=== PATIENT | female | born 1975 | race Caucasian/White ===

== ENCOUNTER 2017-10-10 09:12 | Observation (INO) | payer OTHER ==
[2017-10-10] MEDS ORDERED: SODIUM CHLORIDE 0.9% 1,000 ML IV ONE ×3 (09:30→11:29)
[2017-10-10] MEDS ORDERED: ACETAMINOPHEN TAB 500 MG TAB PO STA (09:30)
--- NOTE | 2017-10-10 09:33 | ED ---
General Adult HPI - General Chief complaint: Fever Stated complaint: Fever, Vomiting Time Seen by Provider: 10/10/17 09:25 Source: patient, RN notes reviewed, old records reviewed Mode of arrival: ambulatory Limitations: no limitations - History of Present Illness Initial comments: 42-year-old female presenting with fever and vomiting. Patient's fever began yesterday, restaurant 102 at home. This morning she developed nausea and vomiting, she's had total of 3 episodes of nonbloody nonbilious vomiting over the past 1-2 hours. She also complains of some rhinorrhea and nasal congestion. No sore throat. No chest pain or cough. No difficulty breathing. No abdominal pain, no diarrhea. No dysuria or hematuria. No flank pain. Patient has no significant past medical history, not currently on any medication. - Related Data Home Medications Medication Instructions Recorded Confirmed No Known Home Medications [No 10/10/17 10/10/17 Known Home Medications] Allergies Allergy/AdvReac Type Severity Reaction Status Date / Time No Known Allergies Allergy Verified 10/10/17 09:30 Review of Systems ROS Statement: Those systems with pertinent positive or pertinent negative responses have been documented in the HPI. ROS Other: All systems not noted in ROS Statement are negative. Past Medical History Past Medical History: Thyroid Disorder History of Any Multi-Drug Resistant Organisms: None Reported Past Surgical History: Section Additional Past Surgical History / Comment(s): kidney stone removal; uterine ablation Past Psychological History: Anxiety, Depression Smoking Status: Current every day smoker Past Alcohol Use History: Rare Past Drug Use History: None Reported General Exam Limitations: no limitations General appearance: alert, in distress Head exam: Present: atraumatic, normocephalic Eye exam: Present: normal appearance. Absent: PERRL, EOMI ENT exam: Present: mucous membranes dry Neck exam: Present: normal inspection, full ROM. Absent: tenderness, meningismus Respiratory exam: Present: normal lung sounds bilaterally. Absent: respiratory distress, wheezes, rales Cardiovascular Exam: Present: normal rhythm, tachycardia GI/Abdominal exam: Present: soft. Absent: distended, tenderness, guarding, rebound, rigid Extremities exam: Present: normal inspection, normal capillary refill. Absent: pedal edema, joint swelling, calf tenderness Neurological exam: Present: alert, oriented X3, CN II-XII intact. Absent: motor sensory deficit Psychiatric exam: Present: normal affect, normal mood Skin exam: Present: warm, dry, intact. Absent: cyanosis, diaphoretic Course Vital Signs 10/10/17 10/10/17 10/10/17 09:22 10:36 11:22 Temperature 103.6 F H 99.8 F H Pulse Rate 145 H 116 H 101 H Respiratory 20 18 18 Rate Blood Pressure 130/60 101/68 96/54 O2 Sat by Pulse 97 95 95 Oximetry 10/10/17 11:25 Temperature 101.1 F H Pulse Rate Respiratory Rate Blood Pressure O2 Sat by Pulse Oximetry Medical Decision Making - Medical Decision Making 42-year-old female presenting with fever and nausea vomiting. Patient has minimal associated symptoms. Laboratory studies are obtained, she does have a white count 9.5 which is normal although this is predominantly neutrophils. Hemoglobin stable. CMP is within normal limits. Lactic acid is normal at 1.5. Patient's initial vital signs are quite abnormal with a heart rate in the 140s and a fever of 103.5. She received 2 L of IV hydration and Tylenol awaiting her laboratory studies. Vitals do improve somewhat. Urinalysis is positive for nitrate, large leukocyte Estrace, and 89 white blood cell counts. Although patient is not having urinary symptoms, I do believe her source of infection is pyelonephritis. On reevaluation She is having persistent nausea and vomiting she will be admitted for IV antibiotics and fluid hydration. - Lab Data Result diagrams: 10/10/17 09:43 10/10/17 09:43 Lab Results 10/10/17 10/10/17 10/10/17 Range/Units 09:43 09:43 09:43 WBC 9.5 (3.8-10.6) k/uL RBC 4.90 (3.80-5.40) m/uL Hgb 14.1 (11.4-16.0) gm/dL Hct 42.5 (34.0-46.0) % MCV 86.7 (80.0-100.0) fL MCH 28.8 (25.0-35.0) pg MCHC 33.2 (31.0-37.0) g/dL RDW 13.3 (11.5-15.5) % Plt Count 223 (150-450) k/uL Neutrophils % 84 % Lymphocytes % 11 % Monocytes % 3 % Eosinophils % 1 % Basophils % 0 % Neutrophils # 7.9 H (1.3-7.7) k/uL Lymphocytes # 1.1 (1.0-4.8) k/uL Monocytes # 0.3 (0-1.0) k/uL Eosinophils # 0.1 (0-0.7) k/uL Basophils # 0.0 (0-0.2) k/uL Sodium 139 (137-145) mmol/L Potassium 4.7 (3.5-5.1) mmol/L Chloride 108 H (98-107) mmol/L Carbon Dioxide 18 L (22-30) mmol/L Anion Gap 13 mmol/L BUN 12 (7-17) mg/dL Creatinine 0.63 (0.52-1.04) mg/dL Est GFR (CKD-EPI)AfAm >90 (>60 ml/min/1.73 sqM) Est GFR (CKD-EPI)NonAf >90 (>60 ml/min/1.73 sqM) Glucose 117 H (74-99) mg/dL Plasma Lactic Acid Freddie (0.7-2.0) mmol/L Calcium 9.3 (8.4-10.2) mg/dL Total Bilirubin 1.0 (0.2-1.3) mg/dL AST 23 (14-36) U/L ALT 28 (9-52) U/L Alkaline Phosphatase 47 (38-126) U/L Total Protein 6.8 (6.3-8.2) g/dL Albumin 3.9 (3.5-5.0) g/dL Urine Color Urine Appearance (Clear) Urine pH (5.0-8.0) Ur Specific [place] (1.001-1.035) Urine Protein (Negative) Urine Glucose (UA) (Negative) Urine Ketones (Negative) Urine Blood (Negative) Urine Nitrite (Negative) Urine Bilirubin (Negative) Urine Urobilinogen (<2.0) mg/dL Ur Leukocyte Esterase (Negative) Urine RBC (0-5) /hpf Urine WBC (0-5) /hpf Ur Squamous Epith Cells (0-4) /hpf Urine Bacteria (None) /hpf Urine Mucus (None) /hpf Urine HCG, Qual Not Detected (Not Detectd) Influenza Type A RNA (Not Detectd) Influenza Type B (PCR) (Not Detectd) 10/10/17 10/10/1710/10/18 Range/Units 09:43 09:43 09:43 WBC (3.8-10.6) k/uL RBC (3.80-5.40) m/uL Hgb (11.4-16.0) gm/dL Hct (34.0-46.0) % MCV (80.0-100.0) fL MCH (25.0-35.0) pg MCHC (31.0-37.0) g/dL RDW (11.5-15.5) % Plt Count (150-450) k/uL Neutrophils % % Lymphocytes % % Monocytes % % Eosinophils % % Basophils % % Neutrophils # (1.3-7.7) k/uL Lymphocytes # (1.0-4.8) k/uL Monocytes # (0-1.0) k/uL Eosinophils # (0-0.7) k/uL Basophils # (0-0.2) k/uL Sodium (137-145) mmol/L Potassium (3.5-5.1) mmol/L Chloride (98-107) mmol/L Carbon Dioxide (22-30) mmol/L Anion Gap mmol/L BUN (7-17) mg/dL Creatinine (0.52-1.04) mg/dL Est GFR (CKD-EPI)AfAm (>60 ml/min/1.73 sqM) Est GFR (CKD-EPI)NonAf (>60 ml/min/1.73 sqM) Glucose (74-99) mg/dL Plasma Lactic Acid Freddie 1.5 (0.7-2.0) mmol/L Calcium (8.4-10.2) mg/dL Total Bilirubin (0.2-1.3) mg/dL AST (14-36) U/L ALT (9-52) U/L Alkaline Phosphatase (38-126) U/L Total Protein (6.3-8.2) g/dL Albumin (3.5-5.0) g/dL Urine Color Yellow Urine Appearance Cloudy H (Clear) Urine pH 5.5 (5.0-8.0) Ur Specific [place] 1.012 (1.001-1.035) Urine Protein 1+ H (Negative) Urine Glucose (UA) Negative (Negative) Urine Ketones Negative (Negative) Urine Blood Moderate H (Negative) Urine Nitrite Positive H (Negative) Urine Bilirubin Negative (Negative) Urine Urobilinogen <2.0 (<2.0) mg/dL Ur Leukocyte Esterase Large H (Negative) Urine RBC 12 H (0-5) /hpf Urine WBC 89 H (0-5) /hpf Ur Squamous Epith Cells 3 (0-4) /hpf Urine Bacteria Rare H (None) /hpf Urine Mucus Rare H (None) /hpf Urine HCG, Qual (Not Detectd) Influenza Type A RNA Not Detected (Not Detectd) Influenza Type B (PCR) Not Detected (Not Detectd) Disposition Clinical Impression: Pyelonephritis Disposition: ADMITTED IP TO THIS HOSP Condition: Stable Is patient prescribed a controlled substance at d/c from ED?: No Referrals: None,Stated [Primary Care Provider] - 1-2 days Time of Disposition: 12:03 Decision to Admit Reason: Admit from EC Decision Date: 10/10/17 Decision Time: 12:03
[2017-10-10 10:11] LABS: Basophils % (A) 0 %; Eosinophils # (A) 0.1 k/uL (0-0.7); Eosinophils % (A) 1 %; HCT 42.5 % (34.0-46.0); HGB 14.1 gm/dL (11.4-16.0); Lymphocytes # (A) 1.1 k/uL (1.0-4.8); Lymphocytes % (A) 11 %; MCH 28.8 pg (25.0-35.0); MCHC 33.2 g/dL (31.0-37.0); MCV 86.7 fL (80.0-100.0); Mean Platelet Volume 7.8; Monocytes # (A) 0.3 k/uL (0-1.0); Monocytes % (A) 3 %; Neutrophils # (A) 7.9 k/uL (1.3-7.7); Neutrophils % (A) 84 %; Platelet Count 223 k/uL (150-450); RDW 13.3 % (11.5-15.5); WBC 9.5 k/uL (3.8-10.6)
[2017-10-10 10:13] LABS: Appearance,Urine Cloudy (Clear); Bacteria,Urine Rare /hpf; Bilirubin,Urine Negative (Negative); Blood,Urine Moderate (Negative); Color,Urine Yellow; Glucose,Urine (UA) Negative (Negative); Ketones,Urine Negative (Negative); Leukocyte Esterase,Urine Large (Negative); Mucus,Urine Rare /hpf; Nitrite,Urine Positive (Negative); PH, Urine 5.5 (5.0-8.0); Protein,Urine 1+ (Negative); RBC,Urine 12 /hpf (0-5); Specific Gravity,Urine 1.012 (1.001-1.035); Squamous Epithelial Cell,Urine 3 /hpf (0-4); Urobilinogen,Urine <2.0 mg/dL (<2.0); WBC,Urine 89 /hpf (0-5)
--- NOTE | 2017-10-10 10:14 | XR ---
EXAMINATION TYPE: XR chest 2V DATE OF EXAM: 10/10/2017 COMPARISON: NONE HISTORY: Lethargy, dizziness and pain TECHNIQUE: Frontal and lateral views of the chest are obtained. FINDINGS: There is no focal air space opacity, pleural effusion, or pneumothorax seen. The cardiac silhouette size is within normal limits. The osseous structures are intact. IMPRESSION: No acute cardiopulmonary process.
[2017-10-10 10:27] LABS: Albumin 3.9 g/dL (3.5-5.0); Anion Gap 13 mmol/L; Calcium 9.3 mg/dL (8.4-10.2); Carbon Dioxide 18 mmol/L (22-30); Chloride 108 mmol/L (98-107); Glucose 117 mg/dL (74-99); Sodium 139 mmol/L (137-145); Total Protein 6.8 g/dL (6.3-8.2)
[2017-10-10] MEDS ORDERED: cefTRIAXone IN SWFI 1,000 MG/10 ML SYRINGE IVP STA (10:27)
[2017-10-10 10:29] LABS: ALT 28 U/L (9-52); AST 23 U/L (14-36); Alkaline Phosphatase 47 U/L (38-126); Blood Urea Nitrogen 12 mg/dL (7-17); Potassium 4.7 mmol/L (3.5-5.1)
[2017-10-10] MEDS ORDERED: KETOROLAC 30 MG/ML 1 ML VIAL IVP STA (11:29)
[2017-10-10] MEDS ORDERED: KETOROLAC 30 MG/ML 1 ML VIAL IVP PRN (12:04)
[2017-10-10] MEDS ORDERED: NALOXONE 0.4 MG/ML 1 ML VIAL IV PRN (12:04)
[2017-10-10] MEDS ORDERED: ONDANSETRON 4 MG/2 ML VIAL IVP PRN (12:04)
[2017-10-10] MEDS: 0.9% NACL WITH KCL 20 MEQ/L 1,000 ML IV SCH ×2 (12:42→23:09)
[2017-10-10 13:04] VITALS: BMI 32.1
--- NOTE | 2017-10-10 15:16 | US ---
EXAMINATION TYPE: US kidneys/renal and bladder DATE OF EXAM: 10/10/2017 COMPARISON: NONE CLINICAL HISTORY: 42-year-old female urinary tract infection with fever, hx of stones. TECHNIQUE: Multiple sonographic and bladder are obtained. FINDINGS: Right Kidney: 11.8 x 5.1 x 5.1 cm without hydronephrosis. There is an upper pole cyst measuring 1.5 cm and the lower pole cyst measuring 1.1 cm. Left Kidney: 12.1 x 5.2 x 4.8 cm without hydronephrosis. Nondistention of the bladder limits its evaluation. Post Void Residual Volume: Bladder not adequate ly full to evaluate. IMPRESSION: 1. No hydronephrosis. 2. A couple cysts in the right kidney measuring up to 1.5 cm. 3. Nondistention of the bladder limits its evaluation.
--- NOTE | 2017-10-10 15:33 | P.HPIM ---
History of Present Illness H&P Date: 10/10/17 Chief Complaint: Fever with nausea and vomiting Mrs. norton is a 42-year-old female with a past medical history of renal calculi into the hospital with a chief complaint of fever along with nausea and vomiting since last night. Patient states that she was in her usual health until 11 PM. She then started to feel warm and checked her temperature at home which was 1 more to. And in the morning patient developed nausea with vomiting 2-3 episodes over couple of hours. So she came into the ED for further evaluation. In the ED, patient had blood work and urine analysis done. She did not have a white count but her urine was cloudy and positive for nitrites and large leukocyte esterase with 89 WBC.. As the patient had mild complaints of rhinorrhea she was tested for influenza A and B that was negative. Patient was started on ceftriaxone and admitted to the Gen. medical floors. Currently the patient is lying in the bed appears to be in no acute distress. She states that whenever she has UTI she does not have any symptoms of hematuria or dysuria. They always manifest as high temperature. Patient denies having any low back pain or inguinal pain. She does have history of renal calculi. She does not have any chronic medical conditions and does not take any medications at home. She quit smoking 6 weeks back. Review of Systems REVIEW OF SYSTEMS: PSYCH: No anxiety or depression NEURO:No c/o weakness of the extremties, No facial droop, No speech abnormalities. VASCULAR: Peripheral nervous system within the normal limits no edema HEMATOLOGIC: No history of easy bleeding and bruising . No recent infections . RESPIRATORY: No cough, No SOB, No chest discomfort. IMMUNE: No infections INTEGUMENT: no rashes OPHTHALMOLOGIC: No blurry vision and no eye discharge : No dysuria or hematuria [employer]: No bleeding PV CARDIAC: No chest pain , shortness of breath , paroxysmal nocturnal dyspnea MUSCULOSKELETAL : No Aches or pains in the joints or muscles. GI: As per HPI Past Medical History Past Medical History: Thyroid Disorder Additional Past Medical History / Comment(s): past urinary tract infections, kidney stones History of Any Multi-Drug Resistant Organisms: None Reported Past Surgical History: Section Additional Past Surgical History / Comment(s): kidney stone removal; uterine ablation Past Psychological History: Anxiety, Depression Smoking Status: Former smoker Past Alcohol Use History: Rare Past Drug Use History: None Reported - Past Family History Mother Family Medical History: Cancer Additional Family Medical History / Comment(s): Medications and Allergies Home Medications Medication Instructions Recorded Confirmed Type No Known Home Medications [No 10/10/17 10/10/17 History Known Home Medications] Allergies Allergy/AdvReac Type Severity Reaction Status Date / Time No Known Allergies Allergy Verified 10/10/17 09:30 Physical Exam Vitals: Vital Signs Temp Pulse Pulse Resp BP BP Pulse Ox 10/10/17 12:45 98.6 F 93 18 84/54 10/10/17 12:12 99.9 F H 96 16 90/53 95 10/10/17 11:25 101.1 F H 10/10/17 11:22 101 H 18 96/54 95 10/10/17 10:36 99.8 F H 116 H 18 101/68 95 10/10/17 09:22 103.6 F H 145 H 20 130/60 97 Intake and Output 10/10/17 10/10/17 10/10/17 06:59 14:59 22:59 Other: Weight 92.986 kg GENERAL EXAM GEN. APPEARANCE: alert, in no apparent distress, HEAD EXAM: atraumatic, normocephalic, normal inspection EYE EXAM: normal appearance, PERRL, EOMI. Absent: scleral icterus, conjunctival injection, periorbital swelling ENT EXAM: normal exam, mucous membranes moist NECK EXAM: normal inspection. Absent: tenderness, meningismus, full ROM, lymphadenopathy RESPIRATORY EXAM: normal lung sounds bilaterally. Absent: respiratory distress , wheezes, rales, rhonchi, stridor CARDIOVASCULAR EXAM: Tachycardia, normal rhythm, normal heart sounds. Absent: systolic murmur, diastolic murmur, rubs, gallop, clicks GI/ABDOMINAL EXAM: soft, normal bowel sounds. No CVA tenderness EXTREMITIES EXAM: normal inspection, full ROM, normal capillary refill. Absent : tenderness, pedal edema, joint swelling, calf tenderness BACK EXAM: normal inspection: No CVA tenderness NEUROLOGICAL EXAM: alert, oriented X3, no focal neurological deficits PSYCHIATRIC EXAM: normal affect, normal mood SKIN EXAM: warm, dry, intact, normal color. Absent: rash Results CBC & Chem 7: 10/10/17 09:43 10/10/17 09:43 Labs: Abnormal Lab Results - Last 24 Hours (Table) 10/10/17 10/10/17 10/10/17 Range/Units 09:43 09:43 09:43 Neutrophils # 7.9 H (1.3-7.7) k/uL Chloride 108 H (98-107) mmol/L Carbon Dioxide 18 L (22-30) mmol/L Glucose 117 H (74-99) mg/dL Urine Appearance Cloudy H (Clear) Urine Protein 1+ H (Negative) Urine Blood Moderate H (Negative) Urine Nitrite Positive H (Negative) Ur Leukocyte Esterase Large H (Negative) Urine RBC 12 H (0-5) /hpf Urine WBC 89 H (0-5) /hpf Urine Bacteria Rare H (None) /hpf Urine Mucus Rare H (None) /hpf Microbiology - Last 24 Hours (Table) 10/10/17 09:43 Urine Culture - Preliminary Urine,Voided Thrombosis Risk Factor Assmnt - Choose All That Apply Any of the Below Risk Factors Present?: Yes Each Factor Represents 1 point: Age 41-60 years, Obesity (BMI >25) Other Risk Factors: No Other congenital or acquired thrombophilia - If yes, enter type in comment: No Thrombosis Risk Factor Assessment Total Risk Factor Score: 2 Thrombosis Risk Factor Assessment Level: Low Risk Assessment and Plan Assessment: Acute pyelonephritis History of renal calculi Obesity with BMI of 32.1 Plan: We'll continue with ceftriaxone and IV fluids. Urine culture is pending. We will get a renal ultrasound to look for any foci of infection. Further recommendations to follow depending on the progress of the patient.
[2017-10-10] MEDS: ACETAMINOPHEN TAB 325 MG TAB PO PRN ×2 (15:44→21:46)
[2017-10-11 07:34] LABS: Basophils % (A) 0 %; Eosinophils # (A) 0.1 k/uL (0-0.7); Eosinophils % (A) 2 %; HCT 36.7 % (34.0-46.0); HGB 11.9 gm/dL (11.4-16.0); Lymphocytes # (A) 1.5 k/uL (1.0-4.8); Lymphocytes % (A) 22 %; MCH 28.7 pg (25.0-35.0); MCHC 32.3 g/dL (31.0-37.0); MCV 88.9 fL (80.0-100.0); Mean Platelet Volume 7.9; Monocytes # (A) 0.6 k/uL (0-1.0); Monocytes % (A) 8 %; Neutrophils # (A) 4.7 k/uL (1.3-7.7); Neutrophils % (A) 67 %; Platelet Count 202 k/uL (150-450); RBC 4.13 m/uL (3.80-5.40); RDW 13.5 % (11.5-15.5); WBC 7.1 k/uL (3.8-10.6)
[2017-10-11 07:55] LABS: Anion Gap 9 mmol/L; Blood Urea Nitrogen 6 mg/dL (7-17); Calcium 8.6 mg/dL (8.4-10.2); Carbon Dioxide 23 mmol/L (22-30); Chloride 109 mmol/L (98-107); Glucose 84 mg/dL (74-99); Potassium 4.8 mmol/L (3.5-5.1); Sodium 141 mmol/L (137-145)
[2017-10-11] MEDS: cefTRIAXone IN SWFI 1,000 MG/10 ML SYRINGE IVP SCH (08:53)
[2017-10-11] MEDS: 0.9% NACL WITH KCL 20 MEQ/L 1,000 ML IV SCH (08:59)
[2017-10-11] MEDS: ACETAMINOPHEN TAB 325 MG TAB PO PRN (14:45)
--- NOTE | 2017-10-11 16:07 | P.PN ---
Subjective 42-year-old admitted the secondary to sepsis from urinary tract infection and pyelonephritis. Patient the urine cultures are showing gram-negative 100,000 WBC patient is comparing of headache without any photophobia neck rigidity nuchal rigidity headache is in the frontal area which started yesterday. Probably because of the infection itself. We will use Fioricet for her headache will await urine cultures. Continue with Rocephin. Constitutional: Denied any fatigue denied any fever. Cardio vascular: denied any chest pain, palpitations Gastrointestinal denied any nausea vomiting Pulmonary: Denied any shortness of breath cough Neurologic denied any new focal deficits Objective - Vital Signs Vital signs: Vital Signs Temp 98.2 F 10/11/17 12:10 Pulse 77 10/11/17 12:10 Resp 16 10/11/17 12:10 BP 109/70 10/11/17 12:10 Pulse Ox 99 10/11/17 12:10 Intake & Output 10/10/17 10/11/17 10/11/17 18:59 06:59 18:59 Intake Total 970 Output Total 360 Balance -360 970 Weight 92.986 kg Intake: Intake, IV Titration 970 Amount 0.9% NaCl with KCl 20 Meq 970 /l 1,000 ml @ 100 mls/hr IV .Q10H MELISSA Rx#: [id number] Output: Urine 360 Other: Voiding Method Toilet # Voids 1 2 - Exam PHYSICAL EXAMINATION: GENERAL: The patient is alert and oriented x3, not in any acute distress. Well developed, well nourished. HEENT: Pupils are round and equally reacting to light. EOMI. No scleral icterus. No conjunctival pallor. Normocephalic, atraumatic. No pharyngeal erythema. No thyromegaly. CARDIOVASCULAR: S1 and S2 present. No murmurs, rubs, or gallops. PULMONARY: Chest is clear to auscultation, no wheezing or crackles. ABDOMEN: Soft, nontender, nondistended, normoactive bowel sounds. No palpable organomegaly. MUSCULOSKELETAL: No joint swelling or deformity. EXTREMITIES: No cyanosis, clubbing, or pedal edema. NEUROLOGICAL: Gross neurological examination did not reveal any focal deficits. SKIN: No rashes. - Labs CBC & Chem 7: 10/11/17 07:11 10/11/17 07:11 Labs: Abnormal Lab Results - Last 24 Hours (Table) 10/11/17 Range/Units 07:11 Chloride 109 H (98-107) mmol/L BUN 6 L (7-17) mg/dL Microbiology - Last 24 Hours (Table) 10/10/17 09:43 Urine Culture - Preliminary Urine,Voided Gram Neg Bacilli 10/10/17 09:43 Blood Culture - Preliminary Blood No Growth after 24 hours Assessment and Plan Plan: Sepsis secondary to urinary tract infection and acute viral nephritis -Obesity Headache secondary to infection Continue with antibiotics, awaiting urine cultures and studies.
[2017-10-11] MEDS: BUTALB/APAP/CAFF 50-325-40MG TAB PO PRN (16:09)
[2017-10-12] MEDS: BUTALB/APAP/CAFF 50-325-40MG TAB PO PRN (01:49)
[2017-10-12] MEDS: 0.9% NACL WITH KCL 20 MEQ/L 1,000 ML IV SCH ×2 (01:50→09:21)
[2017-10-12] MEDS: cefTRIAXone IN SWFI 1,000 MG/10 ML SYRINGE IVP SCH (09:00)
[2017-10-12 13:59] VITALS: BP 114/50; PULSE 76; RESP 16; TEMP 98.7
--- NOTE | 2017-10-12 15:14 | P.DS ---
Providers Date of admission: 10/10/17 12:04 Attending physician: Benji Crowder Primary care physician: Stated None Hospital Course: 42-year-old admitted the secondary to sepsis from urinary tract infection and pyelonephritis. Patient the urine cultures are showing gram-negative 100,000 WBC patient is comparing of headache without any photophobia neck rigidity nuchal rigidity headache is in the frontal area which started yesterday. Probably because of the infection itself. We will use Fioricet for her headache will await urine cultures. on Rocephin. 10/12/2017 Patient's urine cultures are positive for E. coli pansensitive and patient will be discharged on ciprofloxacin for 5 more days completing total 7 day of therapy. Her headache improved. PHYSICAL EXAMINATION: GENERAL: The patient is alert and oriented x3, not in any acute distress. Well developed, well nourished. HEENT: Pupils are round and equally reacting to light. EOMI. No scleral icterus. No conjunctival pallor. Normocephalic, atraumatic. No pharyngeal erythema. No thyromegaly. CARDIOVASCULAR: S1 and S2 present. No murmurs, rubs, or gallops. PULMONARY: Chest is clear to auscultation, no wheezing or crackles. ABDOMEN: Soft, nontender, nondistended, normoactive bowel sounds. No palpable organomegaly. MUSCULOSKELETAL: No joint swelling or deformity. EXTREMITIES: No cyanosis, clubbing, or pedal edema. NEUROLOGICAL: Gross neurological examination did not reveal any focal deficits. SKIN: No rashes. Assessment and Plan Plan: Sepsis secondary to urinary tract infection and acute pyelonephritis -Obesity Headache secondary to infection Continue with antibiotics, awaiting urine cultures and studies. Patient Condition at Discharge: Stable Plan - Discharge Summary Discharge Rx Participant: No New Discharge Prescriptions: New Ciprofloxacin HCl [Cipro] 500 mg PO BID 10 Days #6 tab Discharge Medication List Ciprofloxacin HCl [Cipro] 500 mg PO BID 10 Days #6 tab 10/12/17 [Rx] Follow up Appointment(s)/Referral(s): Nabila Santiago MD [STAFF PHYSICIAN] - 1 Week None,Stated [Primary Care Provider] - 1-2 days Patient Instructions/Handouts: Kidney Infection (DC) Activity/Diet/Wound Care/Special Instructions: Continue diet and activity as tolerated Make sure to drink plenty of water Take antibiotic as instructed Call a primary care doctor to schedule a follow up appointment with a doctor in 1-2 days Discharge Disposition: HOME SELF-CARE
== END 2017-10-12 14:25 | disposition home or self-care (01) ==
LOC: EC 09:12 → INTOOBSV 12:04 → 6PED 12:04 → UNDODISIN 10-12 14:25
PROVIDERS: ADMIT Internal Medicine; ATTEND Internal Medicine
DX: A41.51 Sepsis due to Escherichia coli [E. coli] (principal); N10 Acute pyelonephritis; F32.9 Major depressive disorder, single episode, unspecified; F41.9 Anxiety disorder, unspecified; E66.9 Obesity, unspecified; Z68.32 Body mass index [BMI] 32.0-32.9, adult; R51 Headache; E07.9 Disorder of thyroid, unspecified; N28.1 Cyst of kidney, acquired; Z87.440 Personal history of urinary (tract) infections; Z87.442 Personal history of urinary calculi; Z87.891 Personal history of nicotine dependence; Z80.9 Family history of malignant neoplasm, unspecified
CPT/HCPCS: 96365; 96366 ×2; 96375 ×2; 96376 ×2; 96361; 99285; 36415; 80053; 80048; 83605; 85025 ×2; 81001; 81025; 87040; 87086; 87077; 87186; 87502; 71046; 76770; G0378 ×3; J2405; J0696 ×3; J1885 ×2; 96374

== ENCOUNTER → 2017-12-05 | Outpatient (CLI) | payer OTHER ==
--- NOTE | 2017-12-05 13:09 | MR ---
EXAMINATION TYPE: MR brain wo con DATE OF EXAM: 12/05/2017 10:29 AM COMPARISON: NONE HISTORY: Headache / Family hx aneurysm Multiplanar and multispin-echo imaging of the brain was performed . The ventricles, basal cisterns and sulci overlying the cerebral convexities are within normal limits. There is no evidence for midline shift or mass effect. Acute intracranial hemorrhage or extra-axial collection is not evident. The brain parenchyma reveals no abnormal increased signal. No acute edema is identified. The paranasal sinuses and mastoid air cells are well-aerated. IMPRESSION: Unremarkable MRI of the brain.
--- NOTE | 2017-12-05 13:22 | MR ---
EXAMINATION TYPE: MR angio head wo con DATE OF EXAM: 12/05/2017 10:15 AM COMPARISON: NONE HISTORY: Headache / Family hx aneurysm Three-dimensional [id number] intracranial MRA was performed with multiple intensity projection im ages submitted and source data reviewed at the workstation. The vertebrobasilar system as well as intracranial portions of the internal carotid arteries and thei r major tributaries are patent. I do not see evidence for sizable aneurysm or vascular malformation. IMPRESSION: Normal study.
== END | disposition home or self-care (01) ==
LOC: RADMRIMAIN 09:49
PROVIDERS: ATTEND Family Medicine
DX: R51 Headache (principal); Z82.49 Family history of ischemic heart disease and other diseases of the circulatory system
CPT/HCPCS: 70544; 70551

== ENCOUNTER → 2017-12-08 | Outpatient (CLI) | payer OTHER ==
--- NOTE | 2017-12-09 11:13 | MM ---
Reason for exam: screening (asymptomatic). Last mammogram was performed 3 years and 2 months ago. History: Patient is postmenopausal. Family history of breast cancer in paternal grandmother and breast cancer in paternal aunt. Taking hormonal contraceptives beginning at age 35. Physical Findings: A clinical breast exam by your physician is recommended on an annual basis and results should be correlated with mammographic findings. MG Screening Mammo w CAD Bilateral CC and MLO view(s) were taken. Prior study comparison: October 07, 2014, bilateral MG diagnostic mammo w CAD [facility]. November 06, 2010, [facility] DIGITAL BILATERAL MAMMOGRAM w/CAD. The breast tissue is heterogeneously dense. This may lower the sensitivity of mammography. There is no discrete abnormality. ASSESSMENT: Incomplete: need additional imaging evaluation, BI-RAD 0 RECOMMENDATION: Ultrasound of the left breast. (painful lump left axilla) [facility] will attempt to contact patient to return for ultrasound.
== END | disposition home or self-care (01) ==
LOC: RADMAMWWP 15:43
PROVIDERS: ATTEND Obstetrics & Gynecology
DX: Z12.31 Encounter for screening mammogram for malignant neoplasm of breast (principal)
CPT/HCPCS: 77067

== ENCOUNTER 2017-12-13 22:06 | Emergency (ER) | payer OTHER ==
[2017-12-13 22:15] VITALS: RESP 18
[2017-12-13] MEDS ORDERED: KETOROLAC 30 MG/ML 1 ML VIAL IVP STA (22:58)
--- NOTE | 2017-12-13 23:04 | ED ---
General Adult HPI - General Chief complaint: Chest Pain Stated complaint: back & chest pain Source: patient Mode of arrival: ambulatory Limitations: no limitations - History of Present Illness Initial comments: Dictation was produced using [employer] dictation software. please excuse any grammatical, word or spelling errors. Chief Complaint: 42-year-old female past medical history of thyroid disease, kidney stones presents with right-sided thoracic back pain. History of Present Illness: Patient states she woke up on Tuesday with this pain. She localizes the pain to over her right mid scapular region. She states the pain radiates slightly to her chest. Denies any chest pain or shortness of breath. Patient states her pain is relieved with abduction of her right upper extremity. Patient denies any trauma to the area. Denies any shortness of breath. Denies any lower extremity symptoms. No constitutional symptoms. The ROS documented in this emergency department record has been reviewed and confirmed by me. Those systems with pertinent positive or negative responses have been documented in the HPI. All other systems are other negative and/or noncontributory. - Related Data Home Medications Medication Instructions Recorded Confirmed Cyclobenzaprine [Flexeril] 10 mg PO BID PRN 12/13/17 12/13/17 Ibuprofen [Motrin] 800 mg PO TID PRN 12/13/17 12/13/17 Levothyroxine Sodium [Synthroid] 50 mcg PO DAILY 12/13/17 12/13/17 Previous Rx's Medication Instructions Recorded Acetaminophen [Tylenol] 1,000 mg PO Q4-6H PRN #24 tab 12/14/17 Ibuprofen [Motrin] 600 mg PO Q6HR PRN #24 tab 12/14/17 Allergies Allergy/AdvReac Type Severity Reaction Status Date / Time No Known Allergies Allergy Verified 12/13/17 22:53 Review of Systems ROS Statement: Those systems with pertinent positive or pertinent negative responses have been documented in the HPI. ROS Other: All systems not noted in ROS Statement are negative. Past Medical History Past Medical History: Thyroid Disorder Additional Past Medical History / Comment(s): past urinary tract infections, kidney stones History of Any Multi-Drug Resistant Organisms: None Reported Past Surgical History: Section Additional Past Surgical History / Comment(s): kidney stone removal; uterine ablation Past Psychological History: Anxiety, Depression Smoking Status: Current every day smoker Past Alcohol Use History: Rare Past Drug Use History: None Reported - Past Family History Mother Family Medical History: Cancer Additional Family Medical History / Comment(s): General Exam - General Exam Comments Initial Comments: PHYSICAL EXAM: General Impression: Alert and oriented x3, not in acute distress HEENT: Normocephalic atraumatic, extra-ocular movements intact, pupils equal and reactive to light bilaterally, mucous membranes moist. Cardiovascular: Heart regular rate and rhythm, S1&S2 audible, no murmurs, rubs or gallops Chest: Lungs clear to auscultation bilaterally, no rhonchi, no wheeze, no rales Abdomen: Bowel sounds present, abdomen soft, non-tender, non-distended, no organomegaly Musculoskeletal: Pulses present and equal in all extremities, no peripheral edema, tenderness to palpation over the right medial scapular area soft tissue Motor: Power 5/5 bilaterally, no focal deficits noted Neurological: CN II-XII grossly intact, no focal motor or sensory deficits noted Skin: Intact with no visualized rashes Psych: Normal affect and mood Limitations: no limitations Course Vital Signs 12/13/17 22:09 Temperature 97.8 F Pulse Rate 89 Respiratory 18 Rate Blood Pressure 136/78 O2 Sat by Pulse 100 Oximetry Medical Decision Making - Medical Decision Making ED course: 42-year-old female presents with paraspinal soft tissue thoracic back pain. Vital signs upon arrival are within acceptable limits. Clinical presentation consistent with musculoskeletal strain. Labs were obtained to rule out any serious life-threatening illnesses. Laboratory evaluation is unremarkable. Discussed with patient that her symptoms represent musculoskeletal strain. Discussed with patient that early mobility is the best treatment for her symptoms. She is given prescription for Motrin and Tylenol. She is advised follow-up with her primary care physician. Patient is told to rest she is told to seek medical attention if she has any worsening symptoms. - Lab Data Result diagrams: 12/13/17 23:53 12/13/17 23:53 Lab Results 12/13/17 12/13/17 12/13/17 Range/Units 23:53 23:53 23:53 WBC 12.5 H (3.8-10.6) k/uL RBC 4.99 (3.80-5.40) m/uL Hgb 14.1 (11.4-16.0) gm/dL Hct 43.7 (34.0-46.0) % MCV 87.7 (80.0-100.0) fL MCH 28.2 (25.0-35.0) pg MCHC 32.2 (31.0-37.0) g/dL RDW 13.7 (11.5-15.5) % Plt Count 286 (150-450) k/uL Neutrophils % 60 % Lymphocytes % 30 % Monocytes % 4 % Eosinophils % 4 % Basophils % 0 % Neutrophils # 7.5 (1.3-7.7) k/uL Lymphocytes # 3.7 (1.0-4.8) k/uL Monocytes # 0.6 (0-1.0) k/uL Eosinophils # 0.4 (0-0.7) k/uL Basophils # 0.1 (0-0.2) k/uL D-Dimer (<0.60) mg/L FEU Sodium 141 (137-145) mmol/L Potassium 4.4 (3.5-5.1) mmol/L Chloride 108 H (98-107) mmol/L Carbon Dioxide 25 (22-30) mmol/L Anion Gap 8 mmol/L BUN 14 (7-17) mg/dL Creatinine 0.60 (0.52-1.04) mg/dL Est GFR (CKD-EPI)AfAm >90 (>60 ml/min/1.73 sqM) Est GFR (CKD-EPI)NonAf >90 (>60 ml/min/1.73 sqM) Glucose 95 (74-99) mg/dL Calcium 9.6 (8.4-10.2) mg/dL Total Bilirubin 0.2 (0.2-1.3) mg/dL AST 17 (14-36) U/L ALT 23 (9-52) U/L Alkaline Phosphatase 51 (38-126) U/L Total Creatine Kinase 33 (30-135) U/L CK-MB (CK-2) 0.4 (0.0-2.4) ng/mL CK-MB (CK-2) Rel Index 1.2 Troponin I <0.012 (0.000-0.034) ng/mL Total Protein 7.3 (6.3-8.2) g/dL Albumin 4.4 (3.5-5.0) g/dL 12/13/17 Range/Units 23:53 WBC (3.8-10.6) k/uL RBC (3.80-5.40) m/uL Hgb (11.4-16.0) gm/dL Hct (34.0-46.0) % MCV (80.0-100.0) fL MCH (25.0-35.0) pg MCHC (31.0-37.0) g/dL RDW (11.5-15.5) % Plt Count (150-450) k/uL Neutrophils % % Lymphocytes % % Monocytes % % Eosinophils % % Basophils % % Neutrophils # (1.3-7.7) k/uL Lymphocytes # (1.0-4.8) k/uL Monocytes # (0-1.0) k/uL Eosinophils # (0-0.7) k/uL Basophils # (0-0.2) k/uL D-Dimer 0.19 (<0.60) mg/L FEU Sodium (137-145) mmol/L Potassium (3.5-5.1) mmol/L Chloride (98-107) mmol/L Carbon Dioxide (22-30) mmol/L Anion Gap mmol/L BUN (7-17) mg/dL Creatinine (0.52-1.04) mg/dL Est GFR (CKD-EPI)AfAm (>60 ml/min/1.73 sqM) Est GFR (CKD-EPI)NonAf (>60 ml/min/1.73 sqM) Glucose (74-99) mg/dL Calcium (8.4-10.2) mg/dL Total Bilirubin (0.2-1.3) mg/dL AST (14-36) U/L ALT (9-52) U/L Alkaline Phosphatase (38-126) U/L Total Creatine Kinase (30-135) U/L CK-MB (CK-2) (0.0-2.4) ng/mL CK-MB (CK-2) Rel Index Troponin I (0.000-0.034) ng/mL Total Protein (6.3-8.2) g/dL Albumin (3.5-5.0) g/dL Disposition Clinical Impression: Back strain Disposition: HOME SELF-CARE Condition: Good Instructions: Thoracic Back Strain (ED) Prescriptions: Acetaminophen [Tylenol] 1,000 mg PO Q4-6H PRN #24 tab PRN Reason: Pain Ibuprofen [Motrin] 600 mg PO Q6HR PRN #24 tab PRN Reason: Pain Is patient prescribed a controlled substance at d/c from ED?: No Referrals: Nabila Santiago MD [Primary Care Provider] - 1-2 days Decision Time: 00:56
[2017-12-14 00:04] LABS: Basophils # (A) 0.1 k/uL (0-0.2); Basophils % (A) 0 %; Eosinophils # (A) 0.4 k/uL (0-0.7); Eosinophils % (A) 4 %; HCT 43.7 % (34.0-46.0); HGB 14.1 gm/dL (11.4-16.0); Lymphocytes # (A) 3.7 k/uL (1.0-4.8); Lymphocytes % (A) 30 %; MCH 28.2 pg (25.0-35.0); MCHC 32.2 g/dL (31.0-37.0); MCV 87.7 fL (80.0-100.0); Mean Platelet Volume 7.7; Monocytes # (A) 0.6 k/uL (0-1.0); Monocytes % (A) 4 %; Neutrophils # (A) 7.5 k/uL (1.3-7.7); Neutrophils % (A) 60 %; Platelet Count 286 k/uL (150-450); RBC 4.99 m/uL (3.80-5.40); RDW 13.7 % (11.5-15.5); WBC 12.5 k/uL (3.8-10.6)
[2017-12-14 00:23] LABS: ALT 23 U/L (9-52); AST 17 U/L (14-36); Albumin 4.4 g/dL (3.5-5.0); Alkaline Phosphatase 51 U/L (38-126); Anion Gap 8 mmol/L; Blood Urea Nitrogen 14 mg/dL (7-17); Calcium 9.6 mg/dL (8.4-10.2); Carbon Dioxide 25 mmol/L (22-30); Chloride 108 mmol/L (98-107); Glucose 95 mg/dL (74-99); Potassium 4.4 mmol/L (3.5-5.1); Sodium 141 mmol/L (137-145); Total Bilirubin 0.2 mg/dL (0.2-1.3); Total Protein 7.3 g/dL (6.3-8.2)
[2017-12-14 00:29] LABS: Creatine Kinase 33 U/L (30-135)
[2017-12-14 00:42] LABS: Creatine Kinase MB 0.4 ng/mL (0.0-2.4); Troponin I <0.012 ng/mL (0.000-0.034)
--- NOTE | 2017-12-14 00:44 | XR ---
EXAMINATION TYPE: XR chest 2V DATE OF EXAM: 12/14/2017 COMPARISON: 10/10/2017 HISTORY: Chest pain TECHNIQUE: Frontal and lateral views of the chest are obtained. FINDINGS: Heart and mediastinum are normal. Lungs are clear. Diaphragm is normal. Bony thorax appear s normal. IMPRESSION: Normal chest. No change.
[2017-12-14 01:11] VITALS: BP 105/53; PULSE 68; TEMP 97.9
== END 2017-12-14 01:14 | disposition home or self-care (01) ==
LOC: EC 22:06
DX: S29.012A Strain of muscle and tendon of back wall of thorax, initial encounter (principal); E07.9 Disorder of thyroid, unspecified; F17.200 Nicotine dependence, unspecified, uncomplicated; Z79.899 Other long term (current) drug therapy; X58.XXXA Exposure to other specified factors, initial encounter
CPT/HCPCS: 99285; 96374; 36415; 85379; 80053; 82550; 82553; 84484; 85025; 71046; J1885

== ENCOUNTER → 2017-12-16 | Outpatient (CLI) | payer OTHER ==
--- NOTE | 2017-12-16 12:46 | US ---
EXAMINATION TYPE: US thyroid st tissue head/neck DATE OF EXAM: 12/16/2017 COMPARISON: NONE CLINICAL HISTORY: E03.9 Hypothyroidism. GLAND SIZE: Right Lobe: 6.0 x 1.7 x 1.9 cm Overall Parenchyma: heterogenous Left Lobe: 5.9 x 1.5 x 1.9 cm Overall Parenchyma: heterogeneous Isthmus Thickness: 0.6 cm NODULES RIGHT: # of nodules measured on right: 0 LEFT: # of nodules measured on left: 0 ISTHMUS: # of nodules measured in the isthmus: 0 Bilateral neck scanned, no evidence of lymphadenopathy. Diffusely heterogeneous gland bilaterally. IMPRESSION: Diffusely heterogenous and enlarged thyroid gland that may be in the basis of thyroid goiter or thyro iditis. No discrete nodule.
== END | disposition home or self-care (01) ==
LOC: RADUSWWP 10:54
PROVIDERS: ATTEND Family Medicine
DX: E07.89 Other specified disorders of thyroid (principal)
CPT/HCPCS: 76536

== ENCOUNTER 2018-01-20 09:46 | Day surgery (SDC) | payer OTHER ==
[2018-01-18 11:10] VITALS: BMI 32.3
[~2018-01-20 09:46] MED LIST: LACTATED RINGERS 1,000 ML IV SCH
[2018-01-20 10:05] VITALS: RESP 16; TEMP 97.1
[2018-01-20] MEDS ORDERED: LIDOCAINE 1% INJ 10MG/ML (20 ML MDV) ONE (11:09)
[2018-01-20] MEDS ORDERED: PROPOFOL 10 MG/ML 20 ML VIAL IV ONE (11:09)
--- NOTE | 2018-01-20 11:20 | P.GSHP ---
History of Present Illness H&P Date: 01/20/18 Chief Complaint: Colon cancer screening Patient here today for colonoscopy. She has not had 1 previously. Her mother has colon cancer. No bowel complaints. Past Medical History Past Medical History: Thyroid Disorder Additional Past Medical History / Comment(s): kidney stones, MIGRAINE HEADACHE History of Any Multi-Drug Resistant Organisms: None Reported Past Surgical History: Section Additional Past Surgical History / Comment(s): kidney stone removal; uterine ablation Past Anesthesia/Blood Transfusion Reactions: No Reported Reaction Smoking Status: Current every day smoker - Past Family History Mother Family Medical History: Cancer Additional Family Medical History / Comment(s): Medications and Allergies Home Medications Medication Instructions Recorded Confirmed Type Levothyroxine Sodium [Synthroid] 50 mcg PO DAILY 12/13/17 01/20/18 History Acetaminophen [Tylenol] 1,000 mg PO Q4-6H PRN #24 tab 12/14/17 01/20/18 Rx Allergies Allergy/AdvReac Type Severity Reaction Status Date / Time No Known Allergies Allergy Verified 01/20/18 10:06 Surgical - Exam Vital Signs Temp Pulse Resp BP Pulse Ox 97.1 F L 78 16 105/59 97 01/20/18 10:03 01/20/18 10:03 01/20/18 10:03 01/20/18 10:03 01/20/18 10:03 Physical exam: General: Well-developed, well-nourished HEENT: Normocephalic, sclerae nonicteric Abdomen: Nontender, nondistended Extremities: No edema Neuro: Alert and oriented Assessment and Plan (1) Colon cancer screening Narrative/Plan: Will proceed with colonoscopy at this time. Current Visit: Yes Status: Acute Code(s): Z12.11 - ENCOUNTER FOR SCREENING FOR MALIGNANT NEOPLASM OF COLON SNOMED Code(s): 307171921
--- NOTE | 2018-01-20 11:30 | P.PCN ---
Date of Procedure: 01/20/18 Procedure(s) Performed: PREOPERATIVE DIAGNOSIS: Colon cancer screening, family history of colon cancer POSTOPERATIVE DIAGNOSIS: 2 small rectal polyps PROCEDURE: Colonoscopy with biopsy ANESTHESIA: MAC SURGEON: Low Betancourt M.D. SPECIMENS: Of polyps 2 ENDOSCOPIC PROCEDURE: The patient was placed on the endoscopy table in the left decubitus position. The Olympus colonoscope was inserted into the anus and passed under direct visualization to the base of the cecum. The appendiceal orifice was visualized. From that point the scope was slowly withdrawn inspecting all surfaces carefully. There were no neoplastic inflammatory or polypoid lesions throughout the cecum, ascending, transverse, descending, and sigmoid colon. In the rectum 2 small polyps were identified and appeared hyperplastic. These were removed using the cold biopsy forceps. There was no visible diverticulosis. Digital rectal examination was normal. The patient was taken to the recovery room in stable condition per anesthesia guidelines. RECOMMENDATIONS: Await biopsy results. Advise follow-up colonoscopy 5 years.
[2018-01-20 11:51] VITALS: PULSE 65
[2018-01-20 12:05] VITALS: BP 108/70
== END 2018-01-20 12:25 | disposition home or self-care (01) ==
LOC: ORWHC2ENDO 09:46
PROVIDERS: ATTEND Surgery
DX: Z12.11 Encounter for screening for malignant neoplasm of colon (principal); K62.1 Rectal polyp; E07.9 Disorder of thyroid, unspecified; F17.210 Nicotine dependence, cigarettes, uncomplicated; Z79.890 Hormone replacement therapy; Z80.0 Family history of malignant neoplasm of digestive organs
CPT/HCPCS: 45380; 81025; 88305

== ENCOUNTER 2018-03-13 02:39 | Emergency (ER) | payer OTHER ==
[2018-03-13 02:59] VITALS: BP 126/65; PULSE 72; RESP 18; TEMP 97.8
[2018-03-13] MEDS ORDERED: ONDANSETRON 4 MG/2 ML VIAL IVP STA (03:23)
[2018-03-13] MEDS ORDERED: MORPHINE SULFATE 4 MG/ML SYRINGE IV STA (03:23)
[2018-03-13 03:43] LABS: Basophils # (A) 0.1 k/uL (0-0.2); Basophils % (A) 1 %; Eosinophils # (A) 0.4 k/uL (0-0.7); Eosinophils % (A) 3 %; HCT 43.7 % (34.0-46.0); HGB 14.3 gm/dL (11.4-16.0); Lymphocytes # (A) 2.3 k/uL (1.0-4.8); Lymphocytes % (A) 18 %; MCH 29.1 pg (25.0-35.0); MCHC 32.8 g/dL (31.0-37.0); MCV 88.6 fL (80.0-100.0); Mean Platelet Volume 8.2; Monocytes # (A) 0.6 k/uL (0-1.0); Monocytes % (A) 4 %; Neutrophils # (A) 9.5 k/uL (1.3-7.7); Neutrophils % (A) 73 %; Platelet Count 237 k/uL (150-450); RBC 4.93 m/uL (3.80-5.40); RDW 13.5 % (11.5-15.5); WBC 12.9 k/uL (3.8-10.6)
--- NOTE | 2018-03-13 03:44 | XR ---
EXAMINATION TYPE: XR KUB DATE OF EXAM: 03/13/2018 COMPARISON: NONE HISTORY: Back pain TECHNIQUE: 2 views FINDINGS: 2 upright views show no sign of intestinal obstruction or pneumoperitoneum. Fecal pattern i s normal. Lung bases are clear. There are no pathologic calcifications over the right kidney. There i s faint 4 mm calcification over lower pole left kidney. IMPRESSION: Nonacute abdomen. Possible left renal calculus.
[2018-03-13 04:02] LABS: Albumin 4.2 g/dL (3.5-5.0); Amylase 35 U/L (30-110); Anion Gap 7 mmol/L; Blood Urea Nitrogen 16 mg/dL (7-17); Calcium 9.5 mg/dL (8.4-10.2); Carbon Dioxide 21 mmol/L (22-30); Chloride 110 mmol/L (98-107); Glucose 120 mg/dL (74-99); Lipase 57 U/L (23-300); Sodium 138 mmol/L (137-145); Total Bilirubin 0.5 mg/dL (0.2-1.3); Total Protein 7.4 g/dL (6.3-8.2)
[2018-03-13 04:03] LABS: AST 20 U/L (14-36); Potassium 4.7 mmol/L (3.5-5.1)
[2018-03-13 04:04] LABS: ALT 30 U/L (9-52); Alkaline Phosphatase 42 U/L (38-126)
[2018-03-13] MEDS ORDERED: SODIUM CHLORIDE 0.9% 500 ML 500 ML IV STA (05:45)
--- NOTE | 2018-03-13 07:20 | ED ---
Abdominal Pain HPI - General Chief Complaint: Abdominal Pain Stated Complaint: Back Pain, vomiting Time Seen by Provider: 03/13/18 03:10 Source: patient Mode of arrival: ambulatory Limitations: no limitations - History of Present Illness Initial Comments: This patient's 43-year-old woman who complains of having left flank pain that started between midnight and 1 AM today. Patient states that she had been trying to rest when the pain developed. She describes it as constant, severe, sharp and aching in character. She has not noticed worsening or relieving factors. She states that she is having some associated nausea. She also felt like she had go to the bathroom frequently. MD Complaint: flank pain Onset/Timin -: hour(s) Location: L flank Radiation: none Migration to: no migration Severity: severe Quality: sharp Consistency: constant Improves With: nothing Worsens With: nothing Associated Symptoms: nausea, other (Urgency) - Related Data Home Medications Medication Instructions Recorded Confirmed Levothyroxine Sodium [Synthroid] 50 mcg PO DAILY 12/13/17 03/13/18 Previous Rx's Medication Instructions Recorded Hydrocodone/Acetaminophen [[place] 1 each PO Q6HR PRN #12 tab 03/13/18 5-325] Ondansetron Odt [Zofran ODT] 4 mg PO Q8HR PRN #10 tab 03/13/18 metroNIDAZOLE [Flagyl] 500 mg PO TID #21 tab 03/13/18 Allergies Allergy/AdvReac Type Severity Reaction Status Date / Time No Known Allergies Allergy Verified 03/13/18 07:15 Review of Systems ROS Statement: Those systems with pertinent positive or pertinent negative responses have been documented in the HPI. ROS Other: All systems not noted in ROS Statement are negative. Constitutional: Denies: fever, chills Respiratory: Denies: cough, dyspnea Cardiovascular: Denies: chest pain, palpitations, edema Gastrointestinal: Reports: abdominal pain, nausea. Denies: vomiting, diarrhea, constipation, melena, hematochezia Genitourinary: Reports: frequency. Denies: dysuria, hematuria, abnormal menses Musculoskeletal: Denies: back pain Skin: Denies: rash Neurological: Denies: headache, weakness, numbness Past Medical History Past Medical History: Thyroid Disorder Additional Past Medical History / Comment(s): past urinary tract infections, kidney stones History of Any Multi-Drug Resistant Organisms: None Reported Past Surgical History: Section Additional Past Surgical History / Comment(s): kidney stone removal; uterine ablation Past Psychological History: Anxiety, Depression Smoking Status: Current every day smoker Past Alcohol Use History: None Reported Past Drug Use History: None Reported - Past Family History Mother Family Medical History: Cancer Additional Family Medical History / Comment(s): General Exam Limitations: no limitations General appearance: alert, in no apparent distress Head exam: Present: atraumatic, normocephalic Eye exam: Present: normal appearance Neck exam: Present: normal inspection Respiratory exam: Present: normal lung sounds bilaterally. Absent: respiratory distress, wheezes, rales, rhonchi, stridor Cardiovascular Exam: Present: regular rate, normal rhythm, normal heart sounds. Absent: systolic murmur, diastolic murmur, rubs, gallop GI/Abdominal exam: Present: soft. Absent: distended, tenderness, guarding, rebound, rigid, mass Extremities exam: Present: normal inspection, normal capillary refill. Absent: pedal edema, calf tenderness Back exam: Present: normal inspection. Absent: CVA tenderness (R), CVA tenderness (L) Neurological exam: Present: alert Skin exam: Present: warm, dry, intact, normal color. Absent: rash Course Vital Signs 03/13/18 02:56 Temperature 97.8 F Pulse Rate 72 Respiratory 18 Rate Blood Pressure 126/65 O2 Sat by Pulse 97 Oximetry Medical Decision Making - Lab Data Result diagrams: 03/13/18 03:29 03/13/18 03:29 Lab Results 03/13/18 03/13/18 Range/Units 03:29 03:29 WBC 12.9 H (3.8-10.6) k/uL RBC 4.93 (3.80-5.40) m/uL Hgb 14.3 (11.4-16.0) gm/dL Hct 43.7 (34.0-46.0) % MCV 88.6 (80.0-100.0) fL MCH 29.1 (25.0-35.0) pg MCHC 32.8 (31.0-37.0) g/dL RDW 13.5 (11.5-15.5) % Plt Count 237 (150-450) k/uL Neutrophils % 73 % Lymphocytes % 18 % Monocytes % 4 % Eosinophils % 3 % Basophils % 1 % Neutrophils # 9.5 H (1.3-7.7) k/uL Lymphocytes # 2.3 (1.0-4.8) k/uL Monocytes # 0.6 (0-1.0) k/uL Eosinophils # 0.4 (0-0.7) k/uL Basophils # 0.1 (0-0.2) k/uL Sodium 138 (137-145) mmol/L Potassium 4.7 (3.5-5.1) mmol/L Chloride 110 H (98-107) mmol/L Carbon Dioxide 21 L (22-30) mmol/L Anion Gap 7 mmol/L BUN 16 (7-17) mg/dL Creatinine 0.72 (0.52-1.04) mg/dL Est GFR (CKD-EPI)AfAm >90 (>60 ml/min/1.73 sqM) Est GFR (CKD-EPI)NonAf >90 (>60 ml/min/1.73 sqM) Glucose 120 H (74-99) mg/dL Calcium 9.5 (8.4-10.2) mg/dL Total Bilirubin 0.5 (0.2-1.3) mg/dL AST 20 (14-36) U/L ALT 30 (9-52) U/L Alkaline Phosphatase 42 (38-126) U/L Total Protein 7.4 (6.3-8.2) g/dL Albumin 4.2 (3.5-5.0) g/dL Amylase 35 (30-110) U/L Lipase 57 (23-300) U/L Disposition Clinical Impression: Calculus of kidney Disposition: HOME SELF-CARE Condition: Fair Instructions: Kidney Stones (ED) Prescriptions: Hydrocodone/Acetaminophen [[place] 5-325] 1 each PO Q6HR PRN #12 tab PRN Reason: Pain metroNIDAZOLE [Flagyl] 500 mg PO TID #21 tab Ondansetron Odt [Zofran ODT] 4 mg PO Q8HR PRN #10 tab PRN Reason: Nausea Is patient prescribed a controlled substance at d/c from ED?: No Referrals: Nabila Santiago MD [Primary Care Provider] - 1-2 days
[2018-03-13] MEDS ORDERED: TAMSULOSIN 0.4 MG CAP.ER.24H PO STA (08:16)
--- NOTE | 2018-03-13 08:25 | CT ---
EXAMINATION TYPE: CT abdomen pelvis wo con DATE OF EXAM: 03/13/2018 COMPARISON: 03/13/2018 abdominal radiograph HISTORY: Left sided flank pain CT DLP: 673.4 mGycm Automated exposure control for dose reduction was used. TECHNIQUE: Helical acquisition of images was performed from the lung bases through the pelvis. FINDINGS: LUNG BASES: There is minimal bibasilar subsegmental dependent atelectasis. LIVER/GB: Unremarkable unenhanced morphology. No cholelithiasis. Layering biliary sludge is noted dep endently. PANCREAS: No significant abnormality is seen. SPLEEN: No significant abnormality is seen. ADRENALS: No significant abnormality is seen. KIDNEYS: There is a 4 mm obstructing calculus within the mid left ureter creating moderate left hydro ureteronephrosis and left-sided perinephric fat stranding. Additional nonobstructing left lower pole 4 mm calculus is seen. No right-sided renal calculi. Within the right kidney there is fluid attenuate d probable 9 mm right renal cyst. No perinephric fluid collections are seen. FREE AIR: No free air is visualized ADENOPATHY: No greater than 1 cm short axis lymph node is seen within the abdomen or pelvis given th e limitation of lack of intravenous contrast. REPRODUCTIVE ORGANS: No significant abnormality is seen URINARY BLADDER: No calculi are noted within the urinary bladder. OSSEOUS STRUCTURES: Minimal degenerative change of the lower thoracic spine. BOWEL: No dilated large or small bowel. Moderate amount of retained colonic stool is noted. Small nora wel feces sign is seen within the terminal ileum indicating increased transit time or incompetency of the ileocecal valve. Appendix is unremarkable. OTHER: Mild atherosclerosis is seen of the abdominal aorta and its branches. IMPRESSION: MODERATE LEFT HYDROURETERONEPHROSIS SECONDARY TO AN OBSTRUCTING 4 MM LEFT MID URETERAL CALCULUS. EMELI TIONAL LEFT-SIDED NEPHROLITHIASIS IS PRESENT.
== END 2018-03-13 08:51 | disposition home or self-care (01) ==
LOC: EC 02:39
DX: N20.0 Calculus of kidney (principal); E07.9 Disorder of thyroid, unspecified; F17.200 Nicotine dependence, unspecified, uncomplicated; Z87.440 Personal history of urinary (tract) infections; Z98.890 Other specified postprocedural states; Z79.899 Other long term (current) drug therapy
CPT/HCPCS: 99284; 96374; 96375; 36415; 80053; 82150; 83690; 85025; 74018; 74176; J2270; J2405

== ENCOUNTER 2018-07-27 20:43 | Emergency (ER) | payer OTHER ==
[2018-07-27] MEDS ORDERED: SODIUM CHLORIDE 0.9% 1,000 ML IV STA (20:55)
[2018-07-27 21:35] LABS: Basophils # (A) 0.1 k/uL (0-0.2); Basophils % (A) 1 %; Eosinophils # (A) 0.3 k/uL (0-0.7); Eosinophils % (A) 3 %; HGB 14.4 gm/dL (11.4-16.0); Lymphocytes # (A) 3.2 k/uL (1.0-4.8); Lymphocytes % (A) 26 %; MCH 28.5 pg (25.0-35.0); MCV 89.1 fL (80.0-100.0); Mean Platelet Volume 8.1; Monocytes # (A) 0.6 k/uL (0-1.0); Monocytes % (A) 5 %; Neutrophils # (A) 8.3 k/uL (1.3-7.7); Neutrophils % (A) 66 %; Platelet Count 266 k/uL (150-450); RBC 5.05 m/uL (3.80-5.40); RDW 13.7 % (11.5-15.5); WBC 12.6 k/uL (3.8-10.6)
[2018-07-27 21:37] LABS: Appearance,Urine Cloudy (Clear); Bacteria,Urine Occasional /hpf; Bilirubin,Urine Negative (Negative); Blood,Urine Small (Negative); Color,Urine Yellow; Glucose,Urine (UA) Negative (Negative); Ketones,Urine Negative (Negative); Leukocyte Esterase,Urine Large (Negative); Mucus,Urine Moderate /hpf; Nitrite,Urine Positive (Negative); PH, Urine 6.5 (5.0-8.0); Protein,Urine Trace (Negative); RBC,Urine 21 /hpf (0-5); Specific Gravity,Urine 1.017 (1.001-1.035); Squamous Epithelial Cell,Urine 4 /hpf (0-4); Urobilinogen,Urine <2.0 mg/dL (<2.0); WBC,Urine 47 /hpf (0-5)
[2018-07-27 21:40] LABS: ALT 27 U/L (9-52); AST 16 U/L (14-36); Albumin 3.9 g/dL (3.5-5.0); Alkaline Phosphatase 58 U/L (38-126); Anion Gap 7 mmol/L; Blood Urea Nitrogen 11 mg/dL (7-17); Calcium 9.5 mg/dL (8.4-10.2); Carbon Dioxide 23 mmol/L (22-30); Chloride 111 mmol/L (98-107); Glucose 91 mg/dL (74-99); Lipase 54 U/L (23-300); Potassium 4.3 mmol/L (3.5-5.1); Sodium 141 mmol/L (137-145); Total Bilirubin 0.6 mg/dL (0.2-1.3); Total Protein 6.8 g/dL (6.3-8.2)
--- NOTE | 2018-07-27 22:07 | US ---
EXAMINATION TYPE: US renals and bladder DATE OF EXAM: 07/27/2018 COMPARISON: NONE CLINICAL HISTORY: Pain. Back pain and hematuria. EXAM MEASUREMENTS: Right Kidney: 10.6 x 4.2 x 4.7 cm Left Kidney: 10.4 x 5.0 x 5.5 cm Right Kidney: No hydronephrosis or masses seen Left Kidney: No hydronephrosis or masses seen Bladder: Not fully distended. Bilateral Jets seen: No There is no evidence for hydronephrosis at this point in time. No nephrolithiasis is seen. No refugio s are identified. The urinary bladder is anechoic. IMPRESSION: Negative renal sonogram. No evidence of renal mass. Urinary bladder is contracted. Urinary bladder wa ll could be uniformly thickened that could relate to cystitis. Clinical correlation is recommended.
--- NOTE | 2018-07-27 23:15 | XR ---
EXAM: XR Abdomen, 2 Views CLINICAL HISTORY: ITS.REASON XR Reason: abdominal pain TECHNIQUE: Frontal view of the abdomen/pelvis with upright view of the abdomen. COMPARISON: Abdominal radiographs 03/13/2018. FINDINGS: Intraperitoneal space: No free air. Gastrointestinal tract: Unremarkable. No dilation. Organs: Probable 7 mm left renal calculus appears stable compared to prior examination. Bones/joints: Unremarkable. Other findings: Indeterminate 3 mm calcification over the right lower pelvis was not definitely visualized on prior examination. IMPRESSION: 1. Probable 7 mm left renal calculus appears stable compared to prior examination. Consider evaluation with CT as clinically warranted. 2. Indeterminate 3 mm calcification over the right lower pelvis was not definitely visualized on prior examination. This could represent a ureteral calculus or a vascular calcification. Consider evaluation with CT as clinically warranted.
[2018-07-27 23:36] VITALS: BP 106/64; PULSE 71; RESP 18; TEMP 97.8
--- NOTE | 2018-07-27 23:42 | ED ---
General Adult HPI - General Chief complaint: Abdominal Pain Stated complaint: Abd pain, Poss UTI Time Seen by Provider: 07/27/18 20:54 Source: patient, RN notes reviewed, old records reviewed Mode of arrival: ambulatory Limitations: no limitations - History of Present Illness Initial comments: 43-year-old female patient past medical history of renal calculi, pyelonephritis presents to ED with approximately 3 days of dysuria. Yesterday patient noticed a mild amount of blood in her urine. Today patient had a mild amount of L flank pain. Patient denies any fevers or chills. Patient denies any nausea vomiting diarrhea. Patient denies any abdominal pain, chest pain, shortness breath. Patient has no other complaints. Systemic: Pt denies fatigue, myalgia, fever/chills, rash. Pt denies weakness, night sweats, weight loss. Neuro: Pt denies headache, visual disturbances, syncope or pre-syncope. HEENT: Pt denies ocular discharge or irritation, otalgia, rhinorrhea, pharyngitis or notable lymphadenopathy. Cardiopulmonary: Pt denies chest pain, SOB, heart palpitations, dyspnea on exertion. Abdominal/GI: Pt denies abdominal pain, n/v/d. : Denies new onset urinary or bowel incontinence. MSK: Pt denies myalgia, loss of strength or function in extremities. Neuro: Pt denies new onset weakness, paresthesias. - Related Data Previous Rx's Medication Instructions Recorded Cephalexin [Keflex] 500 mg PO Q6HR 14 Days cap 07/27/18 Allergies Allergy/AdvReac Type Severity Reaction Status Date / Time No Known Allergies Allergy Verified 07/27/18 21:05 Review of Systems ROS Statement: Those systems with pertinent positive or pertinent negative responses have been documented in the HPI. ROS Other: All systems not noted in ROS Statement are negative. Past Medical History Past Medical History: Thyroid Disorder Additional Past Medical History / Comment(s): past urinary tract infections, kidney stones History of Any Multi-Drug Resistant Organisms: None Reported Past Surgical History: Section Additional Past Surgical History / Comment(s): kidney stone removal; uterine ablation Past Psychological History: Anxiety, Depression Smoking Status: Current every day smoker Past Alcohol Use History: None Reported Past Drug Use History: None Reported - Past Family History Mother Family Medical History: Cancer Additional Family Medical History / Comment(s): General Exam - General Exam Comments Initial Comments: Constitutional: NAD, AOX3, Pt has pleasant affect. HEENT: NC/AT, trachea midline, neck supple, no lymphadenopathy. Posterior pharynx non erythematous, without exudates. External ears appear normal, without discharge. Mucous membranes moist. Eyes PERRLA, EOM intact. There is no scleral icterus. No pallor noted. Cardiopulmonary: RRR, no murmurs, rubs or gallops, no JVD noted. Lungs CTAB in anterior and posterior mars. No peripheral edema. Abdominal exam: Abdomen soft and non-distended. Abdomen non-tender to palpation in all 4 quadrants. Bowel sounds active in LLQ. No hepatosplenomegaly. No ecchymosis. Left CVA tenderness. No right CVA tenderness. Neuro: CN II-XII grossly intact. No nuchal rigidity. MSK: No posterior calf tenderness bilaterally, homans sign negative bilaterally. Posterior tibialis and radial pulse +2 bilaterally. Sensation intact in upper and lower extremities. Full active ROM in upper and lower extremities, 5/5 stregnth. Limitations: no limitations Course Vital Signs 07/27/18 07/27/18 07/27/18 20:52 22:47 23:35 Temperature 98.1 F 97.8 F Pulse Rate 95 75 71 Respiratory 20 16 18 Rate Blood Pressure 95/63 90/67 106/64 O2 Sat by Pulse 99 97 100 Oximetry Medical Decision Making - Medical Decision Making 43-year-old female patient past medical history of renal calculi, pyelonephritis presents to ED with approximately 3 days of dysuria. Yesterday patient noticed a mild amount of blood in her urine. Today patient had a mild amount of L flank pain. Patient denies any fevers or chills. Patient denies any nausea vomiting diarrhea. Patient denies any abdominal pain, chest pain, shortness breath. Patient has no other complaints. Patient vital signs stable, afebrile. Physical exam displayed: Left CVA tenderness. No other acute pathology. Labo ratory investigations revealed mild leukocytosis of 12.6. CMP within normal limits. UA displayed urinary tract infection and 21 blood cells. HCG negative. Renal ultrasound displayed possible cystitis. KUB displayed 7 mm left renal calculi, stable with prior exam. Patient understood 1 g Rocephin ED. Patient diagnosed the polynephritis. Patient to be placed on Keflex. Patient to follow up with urologist tomorrow. Patient to follow-up with PCP in 1-2 days. Patient to return to ED if new signs or symptoms develop or condition worsens in any way. Case discussed with Dr. Kirk. - Lab Data Result diagrams: 07/27/18 21:18 07/27/18 21:18 Lab Results 07/27/18 07/27/18 07/27/18 Range/Units 21:18 21:18 21:18 WBC 12.6 H (3.8-10.6) k/uL RBC 5.05 (3.80-5.40) m/uL Hgb 14.4 (11.4-16.0) gm/dL Hct 45.0 (34.0-46.0) % MCV 89.1 (80.0-100.0) fL MCH 28.5 (25.0-35.0) pg MCHC 32.0 (31.0-37.0) g/dL RDW 13.7 (11.5-15.5) % Plt Count 266 (150-450) k/uL Neutrophils % 66 % Lymphocytes % 26 % Monocytes % 5 % Eosinophils % 3 % Basophils % 1 % Neutrophils # 8.3 H (1.3-7.7) k/uL Lymphocytes # 3.2 (1.0-4.8) k/uL Monocytes # 0.6 (0-1.0) k/uL Eosinophils # 0.3 (0-0.7) k/uL Basophils # 0.1 (0-0.2) k/uL Sodium 141 (137-145) mmol/L Potassium 4.3 (3.5-5.1) mmol/L Chloride 111 H (98-107) mmol/L Carbon Dioxide 23 (22-30) mmol/L Anion Gap 7 mmol/L BUN 11 (7-17) mg/dL Creatinine 0.55 (0.52-1.04) mg/dL Est GFR (CKD-EPI)AfAm >90 (>60 ml/min/1.73 sqM) Est GFR (CKD-EPI)NonAf >90 (>60 ml/min/1.73 sqM) Glucose 91 (74-99) mg/dL Plasma Lactic Acid Freddie 0.9 (0.7-2.0) mmol/L Calcium 9.5 (8.4-10.2) mg/dL Total Bilirubin 0.6 (0.2-1.3) mg/dL AST 16 (14-36) U/L ALT 27 (9-52) U/L Alkaline Phosphatase 58 (38-126) U/L Total Protein 6.8 (6.3-8.2) g/dL Albumin 3.9 (3.5-5.0) g/dL Lipase 54 (23-300) U/L Urine Color Urine Appearance (Clear) Urine pH (5.0-8.0) Ur Specific [place] (1.001-1.035) Urine Protein (Negative) Urine Glucose (UA) (Negative) Urine Ketones (Negative) Urine Blood (Negative) Urine Nitrite (Negative) Urine Bilirubin (Negative) Urine Urobilinogen (<2.0) mg/dL Ur Leukocyte Esterase (Negative) Urine RBC (0-5) /hpf Urine WBC (0-5) /hpf Ur Squamous Epith Cells (0-4) /hpf Urine Bacteria (None) /hpf Urine Mucus (None) /hpf Urine HCG, Qual (Not Detectd) 07/27/18 07/27/18 Range/Units 21:18 21:18 WBC (3.8-10.6) k/uL RBC (3.80-5.40) m/uL Hgb (11.4-16.0) gm/dL Hct (34.0-46.0) % MCV (80.0-100.0) fL MCH (25.0-35.0) pg MCHC (31.0-37.0) g/dL RDW (11.5-15.5) % Plt Count (150-450) k/uL Neutrophils % % Lymphocytes % % Monocytes % % Eosinophils % % Basophils % % Neutrophils # (1.3-7.7) k/uL Lymphocytes # (1.0-4.8) k/uL Monocytes # (0-1.0) k/uL Eosinophils # (0-0.7) k/uL Basophils # (0-0.2) k/uL Sodium (137-145) mmol/L Potassium (3.5-5.1) mmol/L Chloride (98-107) mmol/L Carbon Dioxide (22-30) mmol/L Anion Gap mmol/L BUN (7-17) mg/dL Creatinine (0.52-1.04) mg/dL Est GFR (CKD-EPI)AfAm (>60 ml/min/1.73 sqM) Est GFR (CKD-EPI)NonAf (>60 ml/min/1.73 sqM) Glucose (74-99) mg/dL Plasma Lactic Acid Freddie (0.7-2.0) mmol/L Calcium (8.4-10.2) mg/dL Total Bilirubin (0.2-1.3) mg/dL AST (14-36) U/L ALT (9-52) U/L Alkaline Phosphatase (38-126) U/L Total Protein (6.3-8.2) g/dL Albumin (3.5-5.0) g/dL Lipase (23-300) U/L Urine Color Yellow Urine Appearance Cloudy H (Clear) Urine pH 6.5 (5.0-8.0) Ur Specific [place] 1.017 (1.001-1.035) Urine Protein Trace H (Negative) Urine Glucose (UA) Negative (Negative) Urine Ketones Negative (Negative) Urine Blood Small H (Negative) Urine Nitrite Positive H (Negative) Urine Bilirubin Negative (Negative) Urine Urobilinogen <2.0 (<2.0) mg/dL Ur Leukocyte Esterase Large H (Negative) Urine RBC 21 H (0-5) /hpf Urine WBC 47 H (0-5) /hpf Ur Squamous Epith Cells 4 (0-4) /hpf Urine Bacteria Occasional H (None) /hpf Urine Mucus Moderate H (None) /hpf Urine HCG, Qual Not Detected (Not Detectd) Disposition Clinical Impression: Pyelonephritis Disposition: HOME SELF-CARE Condition: Stable Instructions (If sedation given, give patient instructions): Kidney Infection (ED) Additional Instructions: Patient to adhere to previously discussed treatment plan and will take medication(s) as directed. Patient to follow up with PCP in 1-2 days. Patient to return to ED if symptoms do not improve. Please take antibiotics are prescribed. Please follow up with urologist tomorrow. Please follow up with PCP in 1-2 days. Please return to ED if condition worsens in anyway. Prescriptions: Cephalexin [Keflex] 500 mg PO Q6HR 14 Days cap Is patient prescribed a controlled substance at d/c from ED?: No Referrals: Nabila Santiago MD [Primary Care Provider] - 1-2 days
--- NOTE | 2018-07-27 23:45 | ED ---
Medical Decision Making - Medical Decision Making added referral - Lab Data Result diagrams: 07/27/18 21:18 07/27/18 21:18 Lab Results 07/27/18 07/27/18 07/27/18 Range/Units 21:18 21:18 21:18 WBC 12.6 H (3.8-10.6) k/uL RBC 5.05 (3.80-5.40) m/uL Hgb 14.4 (11.4-16.0) gm/dL Hct 45.0 (34.0-46.0) % MCV 89.1 (80.0-100.0) fL MCH 28.5 (25.0-35.0) pg MCHC 32.0 (31.0-37.0) g/dL RDW 13.7 (11.5-15.5) % Plt Count 266 (150-450) k/uL Neutrophils % 66 % Lymphocytes % 26 % Monocytes % 5 % Eosinophils % 3 % Basophils % 1 % Neutrophils # 8.3 H (1.3-7.7) k/uL Lymphocytes # 3.2 (1.0-4.8) k/uL Monocytes # 0.6 (0-1.0) k/uL Eosinophils # 0.3 (0-0.7) k/uL Basophils # 0.1 (0-0.2) k/uL Sodium 141 (137-145) mmol/L Potassium 4.3 (3.5-5.1) mmol/L Chloride 111 H (98-107) mmol/L Carbon Dioxide 23 (22-30) mmol/L Anion Gap 7 mmol/L BUN 11 (7-17) mg/dL Creatinine 0.55 (0.52-1.04) mg/dL Est GFR (CKD-EPI)AfAm >90 (>60 ml/min/1.73 sqM) Est GFR (CKD-EPI)NonAf >90 (>60 ml/min/1.73 sqM) Glucose 91 (74-99) mg/dL Plasma Lactic Acid Freddie 0.9 (0.7-2.0) mmol/L Calcium 9.5 (8.4-10.2) mg/dL Total Bilirubin 0.6 (0.2-1.3) mg/dL AST 16 (14-36) U/L ALT 27 (9-52) U/L Alkaline Phosphatase 58 (38-126) U/L Total Protein 6.8 (6.3-8.2) g/dL Albumin 3.9 (3.5-5.0) g/dL Lipase 54 (23-300) U/L Urine Color Urine Appearance (Clear) Urine pH (5.0-8.0) Ur Specific [place] (1.001-1.035) Urine Protein (Negative) Urine Glucose (UA) (Negative) Urine Ketones (Negative) Urine Blood (Negative) Urine Nitrite (Negative) Urine Bilirubin (Negative) Urine Urobilinogen (<2.0) mg/dL Ur Leukocyte Esterase (Negative) Urine RBC (0-5) /hpf Urine WBC (0-5) /hpf Ur Squamous Epith Cells (0-4) /hpf Urine Bacteria (None) /hpf Urine Mucus (None) /hpf Urine HCG, Qual (Not Detectd) 07/27/18 07/27/18 Range/Units 21:18 21:18 WBC (3.8-10.6) k/uL RBC (3.80-5.40) m/uL Hgb (11.4-16.0) gm/dL Hct (34.0-46.0) % MCV (80.0-100.0) fL MCH (25.0-35.0) pg MCHC (31.0-37.0) g/dL RDW (11.5-15.5) % Plt Count (150-450) k/uL Neutrophils % % Lymphocytes % % Monocytes % % Eosinophils % % Basophils % % Neutrophils # (1.3-7.7) k/uL Lymphocytes # (1.0-4.8) k/uL Monocytes # (0-1.0) k/uL Eosinophils # (0-0.7) k/uL Basophils # (0-0.2) k/uL Sodium (137-145) mmol/L Potassium (3.5-5.1) mmol/L Chloride (98-107) mmol/L Carbon Dioxide (22-30) mmol/L Anion Gap mmol/L BUN (7-17) mg/dL Creatinine (0.52-1.04) mg/dL Est GFR (CKD-EPI)AfAm (>60 ml/min/1.73 sqM) Est GFR (CKD-EPI)NonAf (>60 ml/min/1.73 sqM) Glucose (74-99) mg/dL Plasma Lactic Acid Freddie (0.7-2.0) mmol/L Calcium (8.4-10.2) mg/dL Total Bilirubin (0.2-1.3) mg/dL AST (14-36) U/L ALT (9-52) U/L Alkaline Phosphatase (38-126) U/L Total Protein (6.3-8.2) g/dL Albumin (3.5-5.0) g/dL Lipase (23-300) U/L Urine Color Yellow Urine Appearance Cloudy H (Clear) Urine pH 6.5 (5.0-8.0) Ur Specific [place] 1.017 (1.001-1.035) Urine Protein Trace H (Negative) Urine Glucose (UA) Negative (Negative) Urine Ketones Negative (Negative) Urine Blood Small H (Negative) Urine Nitrite Positive H (Negative) Urine Bilirubin Negative (Negative) Urine Urobilinogen <2.0 (<2.0) mg/dL Ur Leukocyte Esterase Large H (Negative) Urine RBC 21 H (0-5) /hpf Urine WBC 47 H (0-5) /hpf Ur Squamous Epith Cells 4 (0-4) /hpf Urine Bacteria Occasional H (None) /hpf Urine Mucus Moderate H (None) /hpf Urine HCG, Qual Not Detected (Not Detectd) Disposition Clinical Impression: Pyelonephritis Disposition: HOME SELF-CARE Condition: Stable Instructions (If sedation given, give patient instructions): Kidney Infection (ED) Additional Instructions: Patient to adhere to previously discussed treatment plan and will take medication(s) as directed. Patient to follow up with PCP in 1-2 days. Patient to return to ED if symptoms do not improve. Please take antibiotics are prescribed. Please follow up with urologist tomorrow. Please follow up with PCP in 1-2 days. Please return to ED if condition worsens in anyway. Prescriptions: Cephalexin [Keflex] 500 mg PO Q6HR 14 Days cap Is patient prescribed a controlled substance at d/c from ED?: No Referrals: Nabila Santiago MD [Primary Care Provider] - 1-2 days Young Lr MD [STAFF PHYSICIAN] - 1-2 days
== END 2018-07-27 23:55 | disposition home or self-care (01) ==
LOC: EC 20:43
DX: N12 Tubulo-interstitial nephritis, not specified as acute or chronic (principal); D72.829 Elevated white blood cell count, unspecified; N20.0 Calculus of kidney; F17.200 Nicotine dependence, unspecified, uncomplicated; Z98.890 Other specified postprocedural states
CPT/HCPCS: 36415; 80053; 83605; 83690; 85025; 81001; 81025; 87086; 74018; 76770; 99285; 96365; 96361; J0696

== ENCOUNTER 2018-08-26 00:18 | Inpatient (IN) | payer OTHER ==
[2018-08-26] MEDS ORDERED: ACETAMINOPHEN TAB 500 MG TAB PO STA (00:47)
[2018-08-26] MEDS ORDERED: IBUPROFEN 600 MG TAB PO STA (00:47)
[2018-08-26] MEDS ORDERED: MORPHINE SULFATE 4 MG/ML SYRINGE IVP STA (01:52)
[2018-08-26] MEDS: SODIUM CHLORIDE 0.9% 500 ML 500 ML IV SCH ×2 (02:04→05:01)
[2018-08-26 02:15] LABS: ALT 20 U/L (9-52); AST 14 U/L (14-36); Alkaline Phosphatase 59 U/L (38-126); Anion Gap 9 mmol/L; Blood Urea Nitrogen 11 mg/dL (7-17); Calcium 9.2 mg/dL (8.4-10.2); Carbon Dioxide 22 mmol/L (22-30); Chloride 104 mmol/L (98-107); Glucose 106 mg/dL (74-99); Potassium 4.1 mmol/L (3.5-5.1); Sodium 135 mmol/L (137-145); Total Bilirubin 0.7 mg/dL (0.2-1.3); Total Protein 7.1 g/dL (6.3-8.2)
[2018-08-26 02:38] LABS: Appearance,Urine Cloudy (Clear); Bacteria,Urine Many /hpf; Bilirubin,Urine Negative (Negative); Blood,Urine Small (Negative); Color,Urine Yellow; Glucose,Urine (UA) Negative (Negative); Ketones,Urine Negative (Negative); Leukocyte Esterase,Urine Large (Negative); Mucus,Urine Rare /hpf; Nitrite,Urine Positive (Negative); PH, Urine 6.5 (5.0-8.0); Protein,Urine 1+ (Negative); RBC,Urine 15 /hpf (0-5); Specific Gravity,Urine 1.014 (1.001-1.035); Squamous Epithelial Cell,Urine 1 /hpf (0-4); WBC,Urine 66 /hpf (0-5)
--- NOTE | 2018-08-26 03:01 | ED ---
General Adult HPI - General Chief complaint: Abdominal Pain Stated complaint: Back Pain W/ Recent Dx Kidney Stones&Infection Time Seen by Provider: 08/26/18 00:47 Source: patient Mode of arrival: ambulatory Limitations: no limitations - History of Present Illness Initial comments: Is a 43-year-old female with a history of kidney stones as well as urinary tract infection that was diagnosed last month. Patient was on a 14 day course of oral antibiotic she reports that she had a few days of being a symptomatically again began to have flank pain and suprapubic pain as well as severe dysuria. Patient reports that the symptoms of progressively worsened over the past few days this evening she noted that she had a fever which prompted her to come to the emergency department for further evaluation. Her poor she's been experiencing fevers, chills nausea without vomiting and suprapubic discomfort. She denies any chest pain or shortness of breath or c hange in bowel habits. - Related Data Home Medications Medication Instructions Recorded Confirmed No Known Home Medications 08/26/18 08/26/18 Allergies Allergy/AdvReac Type Severity Reaction Status Date / Time No Known Allergies Allergy Verified 07/27/18 21:05 Review of Systems ROS Statement: Those systems with pertinent positive or pertinent negative responses have been documented in the HPI. ROS Other: All systems not noted in ROS Statement are negative. Past Medical History Past Medical History: Thyroid Disorder Additional Past Medical History / Comment(s): past urinary tract infections, kidney stones History of Any Multi-Drug Resistant Organisms: None Reported Past Surgical History: Section Additional Past Surgical History / Comment(s): kidney stone removal; uterine ablation Past Psychological History: Anxiety, Depression Smoking Status: Current every day smoker Past Alcohol Use History: None Reported Past Drug Use History: None Reported - Past Family History Mother Family Medical History: Cancer Additional Family Medical History / Comment(s): General Exam - General Exam Comments Initial Comments: Physical Exam GENERAL: Uncomfortable appearing febrile diaphoretic HENT: Normocephalic, Atraumatic. EYES: PERRL, EOMI PULMONARY: Unlabored respirations. No audible rales rhonchi or wheezing was noted. CARDIOVASCULAR: There is a regular rate and rhythm without any murmurs gallops or rubs. ABDOMEN: Flank pain left greater than right SKIN: Warm to touch : Deferred NEUROLOGIC: Patient is alert and oriented x3. Moving all extremities spontaneously MUSCULOSKELETAL: Normal extremities with adequate strength and full range of motion. No lower extremity swelling or edema. No calf tenderness. PSYCHIATRIC: Normal psychiatric evaluation. Limitations: no limitations Limitations: no limitations Course Vital Signs 08/26/18 08/26/18 00:39 02:59 Temperature 102.1 F H 98.6 F Pulse Rate 114 H 98 Respiratory 20 14 Rate Blood Pressure 102/61 96/46 O2 Sat by Pulse 96 98 Oximetry EKG Findings - EKG Comments: EKG Findings:: EKG was obtained at 12:54 AM, rate is 109 rhythm is sinus tachycardia there is normal axis are normal intervals, UT 1:30, curious 90, QTc is 428 there is no acute ST elevations or depressions there is no evidence of acute ischemia or infarction Medical Decision Making - Medical Decision Making Patient was seen and evaluated immediately upon arrival the emergency department except patient's noted to be febrile tachycardic with a symptoms of urinary tract infection and sepsis workup was initiated as there is concern for Pylonephritis Patient also has a history of known kidney stones or's concern for septic stone therefore CT was ordered Labs with leukocytosis UA with UTI Previous urine culture reveal UTI with staph aureus which was hopkins susceptible Rocephin was ordered CT scan reveals a small 4 mm stone unchanged from previous This time I feel the patient likely has cystitis secondary to urinary tract infection. I will plan on admitting the patient for further IV antibiotics Patient's heart rate improved with fluids, her fever resolved with antipyretics.. - Lab Data Result diagrams: 08/26/18 03:34 08/26/18 01:30 Lab Results 08/26/18 08/26/18 08/26/18 Range/Units 01:30 01:30 01:30 WBC (3.8-10.6) k/uL RBC (3.80-5.40) m/uL Hgb (11.4-16.0) gm/dL Hct (34.0-46.0) % MCV (80.0-100.0) fL MCH (25.0-35.0) pg MCHC (31.0-37.0) g/dL RDW (11.5-15.5) % Plt Count (150-450) k/uL Neutrophils % % Lymphocytes % % Monocytes % % Eosinophils % % Basophils % % Neutrophils # (1.3-7.7) k/uL Lymphocytes # (1.0-4.8) k/uL Monocytes # (0-1.0) k/uL Eosinophils # (0-0.7) k/uL Basophils # (0-0.2) k/uL Sodium 135 L (137-145) mmol/L Potassium 4.1 (3.5-5.1) mmol/L Chloride 104 (98-107) mmol/L Carbon Dioxide 22 (22-30) mmol/L Anion Gap 9 mmol/L BUN 11 (7-17) mg/dL Creatinine 0.71 (0.52-1.04) mg/dL Est GFR (CKD-EPI)AfAm >90 (>60 ml/min/1.73 sqM) Est GFR (CKD-EPI)NonAf >90 (>60 ml/min/1.73 sqM) Glucose 106 H (74-99) mg/dL Plasma Lactic Acid Freddie 1.0 (0.7-2.0) mmol/L Calcium 9.2 (8.4-10.2) mg/dL Total Bilirubin 0.7 (0.2-1.3) mg/dL AST 14 (14-36) U/L ALT 20 (9-52) U/L Alkaline Phosphatase 59 (38-126) U/L Total Protein 7.1 (6.3-8.2) g/dL Albumin 4.0 (3.5-5.0) g/dL Urine Color Yellow Urine Appearance Cloudy H (Clear) Urine pH 6.5 (5.0-8.0) Ur Specific [place] 1.014 (1.001-1.035) Urine Protein 1+ H (Negative) Urine Glucose (UA) Negative (Negative) Urine Ketones Negative (Negative) Urine Blood Small H (Negative) Urine Nitrite Positive H (Negative) Urine Bilirubin Negative (Negative) Urine Urobilinogen 2.0 (<2.0) mg/dL Ur Leukocyte Esterase Large H (Negative) Urine RBC 15 H (0-5) /hpf Urine WBC 66 H (0-5) /hpf Ur Squamous Epith Cells 1 (0-4) /hpf Urine Bacteria Many H (None) /hpf Urine Mucus Rare H (None) /hpf Urine HCG, Qual (Not Detectd) 08/26/18 08/26/18 Range/Units 01:30 03:34 WBC 12.0 H (3.8-10.6) k/uL RBC 4.51 (3.80-5.40) m/uL Hgb 12.6 (11.4-16.0) gm/dL Hct 37.9 (34.0-46.0) % MCV 84.1 D (80.0-100.0) fL MCH 27.9 (25.0-35.0) pg MCHC 33.2 (31.0-37.0) g/dL RDW 15.4 (11.5-15.5) % Plt Count 201 (150-450) k/uL Neutrophils % 71 % Lymphocytes % 16 % Monocytes % 10 % Eosinophils % 1 % Basophils % 0 % Neutrophils # 8.5 H (1.3-7.7) k/uL Lymphocytes # 1.9 (1.0-4.8) k/uL Monocytes # 1.2 H (0-1.0) k/uL Eosinophils # 0.1 (0-0.7) k/uL Basophils # 0.0 (0-0.2) k/uL Sodium (137-145) mmol/L Potassium (3.5-5.1) mmol/L Chloride (98-107) mmol/L Carbon Dioxide (22-30) mmol/L Anion Gap mmol/L BUN (7-17) mg/dL Creatinine (0.52-1.04) mg/dL Est GFR (CKD-EPI)AfAm (>60 ml/min/1.73 sqM) Est GFR (CKD-EPI)NonAf (>60 ml/min/1.73 sqM) Glucose (74-99) mg/dL Plasma Lactic Acid Freddie (0.7-2.0) mmol/L Calcium (8.4-10.2) mg/dL Total Bilirubin (0.2-1.3) mg/dL AST (14-36) U/L ALT (9-52) U/L Alkaline Phosphatase (38-126) U/L Total Protein (6.3-8.2) g/dL Albumin (3.5-5.0) g/dL Urine Color Urine Appearance (Clear) Urine pH (5.0-8.0) Ur Specific [place] (1.001-1.035) Urine Protein (Negative) Urine Glucose (UA) (Negative) Urine Ketones (Negative) Urine Blood (Negative) Urine Nitrite (Negative) Urine Bilirubin (Negative) Urine Urobilinogen (<2.0) mg/dL Ur Leukocyte Esterase (Negative) Urine RBC (0-5) /hpf Urine WBC (0-5) /hpf Ur Squamous Epith Cells (0-4) /hpf Urine Bacteria (None) /hpf Urine Mucus (None) /hpf Urine HCG, Qual Not Detected (Not Detectd) Disposition Clinical Impression: Sepsis, UTI (urinary tract infection) Disposition: ADMITTED IP TO THIS HOSP Condition: Stable
--- NOTE | 2018-08-26 04:03 | CT ---
INDICATION: Abdominal pain TECHNIQUE: CT acquisition is performed through the abdomen and pelvis. Sagittal and coronal reformatted images are provided. No IV contrast is administered. DOSE INFORMATION: CTDIvol 13.5 mGy; DLP 704.6 mGy-cm. One or more of the following dose reduction techniques were used: automated exposure control, adjustment of the mA and/or kV according to patient size, use of iterative reconstruction technique. COMPARISON: CT abdomen and pelvis without contrast, 03/13/18. FINDINGS: The lung bases are clear. Liver, gallbladder, spleen, pancreas, and adrenal glands are unremarkable. The kidneys are similar in size and contour. There is no hydronephrosis. A subcentimeter right kidney cyst appears stable from prior exam. There is a stable nonobstructing 4 mm stone in the lower pole of the left kidney. There is mild aortoiliac atherosclerosis without aneurysm. There is no adenopathy. The appendix is normal. There are no obstructive or inflammatory changes of the bowel. The urinary bladder and uterus are unremarkable. There are no acute osseous findings. IMPRESSION: 1. Stable 4 mm nonobstructing stone in the left kidney. 2. No CT evidence of acute or inflammatory process in the abdomen or pelvis.
[2018-08-26 04:15] LABS: Basophils % (A) 0 %; Eosinophils # (A) 0.1 k/uL (0-0.7); Eosinophils % (A) 1 %; HCT 37.9 % (34.0-46.0); HGB 12.6 gm/dL (11.4-16.0); Lymphocytes # (A) 1.9 k/uL (1.0-4.8); Lymphocytes % (A) 16 %; MCH 27.9 pg (25.0-35.0); MCHC 33.2 g/dL (31.0-37.0); Mean Platelet Volume 10.5; Monocytes # (A) 1.2 k/uL (0-1.0); Monocytes % (A) 10 %; Neutrophils # (A) 8.5 k/uL (1.3-7.7); Neutrophils % (A) 71 %; Platelet Count 201 k/uL (150-450); RBC 4.51 m/uL (3.80-5.40); RDW 15.4 % (11.5-15.5)
[2018-08-26] MEDS ORDERED: FLUCONAZOLE 150 MG TAB PO STA (04:20)
[2018-08-26] MEDS ORDERED: NALOXONE 0.4 MG/ML 1 ML VIAL IV PRN (04:24)
[2018-08-26 04:29] LABS: MCV 84.1 fL (80.0-100.0)
[2018-08-26] MEDS ORDERED: SODIUM CHLORIDE 0.9% 1,000 ML IV SCH (04:30)
[2018-08-26] MEDS ORDERED: PHENAZOPYRIDINE 100 MG TAB PO ONE (04:45)
[2018-08-26 06:55] LABS: Glucose,Whole Blood 117 mg/dL (75-99)
[2018-08-26] MEDS: ACETAMINOPHEN TAB 325 MG TAB PO PRN (11:33)
[2018-08-26] MEDS: MORPHINE SULFATE 2 MG/ML SYRINGE IVP PRN ×2 (11:48→17:28)
[2018-08-26] MEDS: IBUPROFEN 400 MG TAB PO PRN (13:33)
[2018-08-26] MEDS: NICOTINE 14MG/24HR PATCH TRANSDERM SCH (13:33)
[2018-08-26] MEDS: HEPARIN SODIUM,PORCINE 5,000 UNIT/ML 1 ML VIAL SQ SCH (17:29)
[2018-08-26 19:20] LABS: Glucose,Whole Blood 126 mg/dL (75-99)
--- NOTE | 2018-08-26 20:13 | P.HPIM ---
History of Present Illness H&P Date: 08/26/18 Chief Complaint: Abdominal pain Patient is a 43-year-old female with a known history of a known history of renal stones with removal, hypothyroidism, anxiety/depression, previous history of urinary tract infection with MSSA and E. coli came to ER with complaints of left flank pain and suprapubic pain and burning with urination. Patient reports that the symptoms of progressively worsened over the past few days this evening she noted that she had a fever which prompted her to come to the emergency department for further evaluation. Her poor she's been experiencing fevers, chills nausea without vomiting and suprapubic discomfort. She denies any chest pain or shortness of breath or change in bowel habits. Patient was diagnosed with urinary tract infection last month and completed 14 day course of oral antibiotic in the form of Keflex. she reports that she had a few days of being a symptomatically again began to have flank pain and suprapubic pain as well as severe dysuria. CT renal showed stable 4 mL nonobstructing stone left kidney. No CT evidence of acute inflammatory process in the abdomen or pelvis. UA showed nitrate positive, leukocyte esterase positive and cloudy and elevated WBC count. Patient was febrile with T-max is greater than 102 on admission WBC 12.0 Review of Systems Constitutional: Patient denies any fever or chills . No generalized weakness or weight loss. Abdomen: Patient denied nausea vomiting and diarrhea . Patient does have suprapubic abdominal pain and left flank pain. Cardiovascular: Patient denies any chest pain or short of breath no palpitations. Respiratory: patient denied any cough is from production. No shortness of breath Neurologic: Patient denied any numbness or tingling headache. Musculoskeletal: Patient denies any complaints of joint swelling or deformity. Skin: Negative Psychiatric: Negative Endocrine: No heat or cold intolerance. No recent weight gain. Genitourinary: No dysuria or hematuria. All other 14 point ROS negative except the above Past Medical History Past Medical History: Thyroid Disorder Additional Past Medical History / Comment(s): past urinary tract infections, kidney stones History of Any Multi-Drug Resistant Organisms: None Reported Past Surgical History: Section Additional Past Surgical History / Comment(s): kidney stone removal; uterine ablation Past Anesthesia/Blood Transfusion Reactions: No Reported Reaction Past Psychological History: Anxiety, Depression Smoking Status: Current every day smoker Past Alcohol Use History: None Reported Past Drug Use History: None Reported - Past Family History Mother Family Medical History: Cancer Additional Family Medical History / Comment(s): Medications and Allergies Home Medications Medication Instructions Recorded Confirmed Type No Known Home Medications 08/26/18 08/26/18 History Allergies Allergy/AdvReac Type Severity Reaction Status Date / Time No Known Allergies Allergy Verified 08/26/18 08:04 Physical Exam Vitals: Vital Signs Temp Pulse Pulse Resp BP BP Pulse Ox 08/26/18 08:00 62 16 08/26/18 07:20 97.8 F 62 89/58 97 08/26/18 05:32 97.9 F 76 16 104/72 96 08/26/18 02:59 98.6 F 98 14 96/46 98 08/26/18 00:39 102.1 F H 114 H 20 102/61 96 Intake and Output 08/25/18 08/26/18 08/26/18 22:59 06:59 14:59 Other: # Voids 1 Weight 95.254 kg PHYSICAL EXAMINATION: Patient is lying in the bed comfortably, no acute distress, awake alert and oriented. Shaky.. HEENT: Normocephalic. Neck is supple. Pupils reactive. Nostrils clear. Oral cavity is moist. Ears reveal no drainage. Neck reveals no JVD, carotid bruits, or thyromegaly. CHEST EXAMINATION: Trachea is central. Symmetrical expansion. Lung mars clear to auscultation and percussion. CARDIAC: Normal S1, S2 with no gallops. No murmurs ABDOMEN: Soft. Left flank tenderness. Bowel sounds normal. No organomegaly. No abdominal bruits. Extremities: reveal no edema. No clubbing or cyanosis Neurologically awake, alert, oriented x3 with well-coordinated movements. No focal deficits noted Skin: No rash or skin lesions. Psychiatric: Coperative. Nonsuicidal Musculoskeletal: No joint swelling or deformity. Normal range of motion. Results CBC & Chem 7: 08/26/18 03:34 08/26/18 01:30 Labs: Abnormal Lab Results - Last 24 Hours (Table) 08/26/18 08/26/18 08/26/18 Range/Units 01:30 01:30 03:34 WBC 12.0 H (3.8-10.6) k/uL Neutrophils # 8.5 H (1.3-7.7) k/uL Monocytes # 1.2 H (0-1.0) k/uL Sodium 135 L (137-145) mmol/L Glucose 106 H (74-99) mg/dL POC Glucose (mg/dL) (75-99) mg/dL Urine Appearance Cloudy H (Clear) Urine Protein 1+ H (Negative) Urine Blood Small H (Negative) Urine Nitrite Positive H (Negative) Ur Leukocyte Esterase Large H (Negative) Urine RBC 15 H (0-5) /hpf Urine WBC 66 H (0-5) /hpf Urine Bacteria Many H (None) /hpf Urine Mucus Rare H (None) /hpf 08/26/18 Range/Units 06:53 WBC (3.8-10.6) k/uL Neutrophils # (1.3-7.7) k/uL Monocytes # (0-1.0) k/uL Sodium (137-145) mmol/L Glucose (74-99) mg/dL POC Glucose (mg/dL) 117 H (75-99) mg/dL Urine Appearance (Clear) Urine Protein (Negative) Urine Blood (Negative) Urine Nitrite (Negative) Ur Leukocyte Esterase (Negative) Urine RBC (0-5) /hpf Urine WBC (0-5) /hpf Urine Bacteria (None) /hpf Urine Mucus (None) /hpf Thrombosis Risk Factor Assmnt - DVT/VTE Prophylaxis DVT/VTE Prophylaxis: Pharmacologic Prophylaxis ordered - Choose All That Apply Any of the Below Risk Factors Present?: Yes Each Factor Represents 1 point: Age 41-60 years, Obesity (BMI >25) Thrombosis Risk Factor Assessment Total Risk Factor Score: 2 Thrombosis Risk Factor Assessment Level: Low Risk Assessment and Plan Assessment: Acute pyelonephritis Sepsis secondary to acute pyelonephritis with UTI History of renal stones with removal Left 4 mm nonobstructive renal calculi Hypothyroidism. Anxiety/depression Recurrent urinary tract infection. Previous culture showed MSSA and E. coli Nicotine addiction DVT prophylaxis with heparin subcu Plan: Patient be continued on IV hydration, antibiotics in the form of ceftriaxone and follow-up urine culture reports. Tylenol for fever and pain management. Urology will be consulted due to renal stones. We will check TSH and free T4 level. Further recommendations based on the clinical course. Prognosis is guarded. Discussed with the patient and her spouse at bedside in detail. Time with Patient: Greater than 30
[2018-08-26] MEDS: SODIUM CHLORIDE 0.9% 1,000 ML IV SCH (21:10)
[2018-08-27] MEDS: HEPARIN SODIUM,PORCINE 5,000 UNIT/ML 1 ML VIAL SQ SCH ×3 (00:22→16:41)
[2018-08-27] MEDS: ACETAMINOPHEN TAB 325 MG TAB PO PRN ×2 (02:55→20:37)
[2018-08-27] MEDS: SODIUM CHLORIDE 0.9% 1,000 ML IV SCH ×2 (04:31→16:34)
[2018-08-27 06:49] LABS: Glucose,Whole Blood 97 mg/dL (75-99)
[2018-08-27 09:14] LABS: Basophils % (A) 0 %; Eosinophils # (A) 0.1 k/uL (0-0.7); Eosinophils % (A) 1 %; HCT 39.3 % (34.0-46.0); HGB 13.1 gm/dL (11.4-16.0); Lymphocytes # (A) 1.9 k/uL (1.0-4.8); Lymphocytes % (A) 22 %; MCHC 33.3 g/dL (31.0-37.0); MCV 84.2 fL (80.0-100.0); Monocytes # (A) 0.6 k/uL (0-1.0); Monocytes % (A) 7 %; Neutrophils # (A) 5.7 k/uL (1.3-7.7); Neutrophils % (A) 68 %; Platelet Count 197 k/uL (150-450); RBC 4.67 m/uL (3.80-5.40); WBC 8.4 k/uL (3.8-10.6)
[2018-08-27 09:52] LABS: Anion Gap 7 mmol/L; Blood Urea Nitrogen 7 mg/dL (7-17); Calcium 8.6 mg/dL (8.4-10.2); Carbon Dioxide 21 mmol/L (22-30); Chloride 110 mmol/L (98-107); Glucose 98 mg/dL (74-99); Potassium 4.1 mmol/L (3.5-5.1); Sodium 138 mmol/L (137-145)
[2018-08-27] MEDS: NICOTINE 14MG/24HR PATCH TRANSDERM SCH (10:37)
[2018-08-27] MEDS: IBUPROFEN 400 MG TAB PO PRN (10:38)
--- NOTE | 2018-08-27 11:02 | P.GSCN ---
History of Present Illness Consult date: 08/27/18 Reason for Consult: UTI, left renal calculus Requesting physician: Benji Crowder History of present illness: The patient is a 43-year-old white female with a history of recurrent urolithiasis since 2009. She is well-known to Dr. Lr. She was diagnosed with a staph aureus UTI 1 month ago, which was treated with Keflex. She is now admitted with fever, chills, and left flank pain. A computed tomography scan has shown a nonobstructing 6 mm left lower pole renal calculus. Urinalysis is consistent with infection. She is currently being treated with IV antibiotics. Review of Systems - Constitutional Reports chills, Reports fever - Cardiovascular Denies chest pain - Respiratory Denies dyspnea - Gastrointestinal Reports nausea, Denies vomiting - Genitourinary Genitourinary: Reports dysuria, Reports flank pain, Reports kidney stones, De nies hematuria Past Medical History Past Medical History: Thyroid Disorder Additional Past Medical History / Comment(s): past urinary tract infections, kidney stones History of Any Multi-Drug Resistant Organisms: None Reported Past Surgical History: Section Additional Past Surgical History / Comment(s): kidney stone removal; uterine ablation Past Anesthesia/Blood Transfusion Reactions: No Reported Reaction Past Psychological History: Anxiety, Depression Smoking Status: Current every day smoker Past Alcohol Use History: None Reported Past Drug Use History: None Reported - Past Family History Mother Family Medical History: Cancer Additional Family Medical History / Comment(s): Medications and Allergies Home Medications Medication Instructions Recorded Confirmed Type No Known Home Medications 08/26/18 08/26/18 History Allergies Allergy/AdvReac Type Severity Reaction Status Date / Time No Known Allergies Allergy Verified 08/26/18 08:04 Surgical - Exam Vital Signs Temp Pulse Resp BP Pulse Ox 102.1 F H 114 H 20 102/61 96 08/26/18 00:39 08/26/18 00:39 08/26/18 00:39 08/26/18 00:39 08/26/18 00:39 - General well developed, well nourished, no distress - Respiratory normal respiratory effort - Abdomen Abdomen: soft, non tender, no guarding, no rigid, no rebound - Psychiatric oriented to time, oriented to person, oriented to place, speech is normal, memor y intact Results - Labs 08/27/18 08:20 08/27/18 08:20 Abnormal Lab Results - Last 24 Hours (Table) 08/26/18 08/27/18 08/27/18 Range/Units 19:17 08:20 08:20 RDW 16.0 H (11.5-15.5) % Chloride 110 H (98-107) mmol/L Carbon Dioxide 21 L (22-30) mmol/L POC Glucose (mg/dL) 126 H (75-99) mg/dL TSH 11.900 H (0.465-4.680) mIU/L Microbiology - Last 24 Hours (Table) 08/26/18 01:30 Blood Culture - Preliminary Blood No Growth after 24 hours 08/26/18 01:30 Urine Culture - Preliminary Urine,Voided Diabetes panel 08/27/18 Range/Units 08:20 Sodium 138 (137-145) mmol/L Potassium 4.1 (3.5-5.1) mmol/L Chloride 110 H (98-107) mmol/L Carbon Dioxide 21 L (22-30) mmol/L BUN 7 (7-17) mg/dL Creatinine 0.53 (0.52-1.04) mg/dL Glucose 98 (74-99) mg/dL Calcium 8.6 (8.4-10.2) mg/dL Thyroid panel 08/27/18 Range/Units 08:20 TSH 11.900 H (0.465-4.680) mIU/L Calcium panel 08/27/18 Range/Units 08:20 Calcium 8.6 (8.4-10.2) mg/dL Pituitary panel 08/27/18 Range/Units 08:20 Sodium 138 (137-145) mmol/L Potassium 4.1 (3.5-5.1) mmol/L Chloride 110 H (98-107) mmol/L Carbon Dioxide 21 L (22-30) mmol/L BUN 7 (7-17) mg/dL Creatinine 0.53 (0.52-1.04) mg/dL Glucose 98 (74-99) mg/dL Calcium 8.6 (8.4-10.2) mg/dL TSH 11.900 H (0.465-4.680) mIU/L Adrenal panel 08/27/18 Range/Units 08:20 Sodium 138 (137-145) mmol/L Potassium 4.1 (3.5-5.1) mmol/L Chloride 110 H (98-107) mmol/L Carbon Dioxide 21 L (22-30) mmol/L BUN 7 (7-17) mg/dL Creatinine 0.53 (0.52-1.04) mg/dL Glucose 98 (74-99) mg/dL Calcium 8.6 (8.4-10.2) mg/dL - Imaging CT scan - abdomen: report reviewed, image reviewed Assessment and Plan (1) Acute pyelonephritis Current Visit: Yes Status: Acute Code(s): N10 - ACUTE PYELONEPHRITIS SNOMED Code(s): 00036263 (2) Renal calculus Current Visit: Yes Status: Acute Code(s): N20.0 - CALCULUS OF KIDNEY SNOMED Code(s): 89041927 Plan: Blood cultures are negative at 24 hours. A urine culture result is pending. In the meantime, she is being treated with ceftriaxone. I reviewed the computed tomography scan, which reveals a 6 mm nonobstructing left lower pole renal calculus. Treatment for this calculus is felt to be unwarranted at this time. It would be my recommendation that she continue to be treated with ceftriaxone until the final urine culture is back. At that time, she can be placed on an appropriate oral antibiotic and be discharged home. Based on foods she has been advised to avoid in the past, I believe she has a history of calcium oxalate urolithiasis. She has not previously undergone a 24- hour urine study to determine the cause of her recurrent urolithiasis. I have suggested she follow up with Dr. Lr so that this can be performed. Please notify me if he can be of any further assistance during this hospitalization. Time with Patient: Greater than 30
[2018-08-27 11:25] LABS: T4, Free (Free Thyroxine) 0.58 ng/dL (0.78-2.19)
[2018-08-27 12:15] LABS: Glucose,Whole Blood 94 mg/dL (75-99)
[2018-08-27] MEDS: LEVOTHYROXINE 50 MCG TAB PO SCH (16:34)
[2018-08-27 16:46] LABS: Glucose,Whole Blood 115 mg/dL (75-99)
[2018-08-27 20:16] LABS: Glucose,Whole Blood 103 mg/dL (75-99)
--- NOTE | 2018-08-27 21:07 | P.PN ---
Subjective Progress Note Date: 08/27/18 Principal diagnosis: Acute UTI with gram negative Bacilli Patient is a 43-year-old female with a known history of a known history of renal stones with removal, hypothyroidism, anxiety/depression, previous history of urinary tract infection with MSSA and E. coli came to ER with complaints of left flank pain and suprapubic pain and burning with urination. Patient reports that the symptoms of progressively worsened over the past few days this evening she noted that she had a fever which prompted her to come to the emergency department for further evaluation. Her poor she's been experiencing fevers, chills nausea without vomiting and suprapubic discomfort. She denies any chest pain or shortness of breath or change in bowel habits. Patient was diagnosed with urinary tract infection last month and completed 14 day course of oral antibiotic in the form of Keflex. she reports that she had a few days of being a symptomatically again began to have flank pain and suprapubi c pain as well as severe dysuria. CT renal showed stable 4 mL nonobstructing stone left kidney. No CT evidence of acute inflammatory process in the abdomen or pelvis. UA showed nitrate positive, leukocyte esterase positive and cloudy and elevated WBC count. Patient was febrile with T-max is greater than 102 on admission WBC 12.0 08/27/18 Patient is still complaining of left flank pain. No fever no chills today. Patient is able to tolerate oral diet. No complaints of dysuria. Urine culture is growing gram-negative bacilli. Urology has seen the patient and recommends no interest at this time. Patient will need to follow with urology in the clinic. Patient will be continued on ceftriaxone until cultures finalize. No complaints of chest pain or shortness of breath. No nausea vomiting or abdominal pain or diarrhea. Patient has not been taking levothyroxine recently. TSH is 11.9 and free T4 is 0.58. Patient was restarted on levothyroxine 50 g daily. Follow-up repeat level in 4-6 weeks. Current medications reviewed. Objective - Vital Signs Vital signs: Vital Signs Temp 97.6 F 08/27/18 15:00 Pulse 69 08/27/18 15:00 Resp 16 08/27/18 15:00 BP 96/66 08/27/18 15:00 Pulse Ox 98 08/27/18 15:00 Intake & Output 0408/27/18 08/28/18 06:59 18:59 06:59 Intake Total 1075 1500 Balance 1075 1500 Intake: Intake, IV Titration 1075 550 Amount Sodium Chloride 0.9% 1, 900 500 000 ml @ 100 mls/hr IV . Q10H MELISSA Rx#:[id number] cefTRIAXone 1 gm In 175 50 Sodium Chloride 0.9% 50 ml @ 100 mls/hr IVPB Q24HR MELISSA Rx#:[id number] Oral 950 Other: # Voids 2 - Exam PHYSICAL EXAMINATION: Patient is lying in the bed comfortably, no acute distress, awake alert and oriented.. HEENT: Normocephalic. Neck is supple. Pupils reactive. Nostrils clear. Oral cavity is moist. Ears reveal no drainage. Neck reveals no JVD, carotid bruits, or thyromegaly. CHEST EXAMINATION: Trachea is central. Symmetrical expansion. Lung mars clear to auscultation and percussion. CARDIAC: Normal S1, S2 with no gallops. No murmurs ABDOMEN: Soft. Bowel sounds normal. No organomegaly. No abdominal bruits. Extremities: reveal no edema. No clubbing or cyanosis Neurologically awake, alert, oriented x3 with well-coordinated movements. No focal deficits noted Skin: No rash or skin lesions. Psychiatric: Coperative. Nonsuicidal Musculoskeletal: No joint swelling or deformity. Normal range of motion. - Labs CBC & Chem 7: 08/27/18 08:20 08/27/18 08:20 Labs: Abnormal Lab Results - Last 24 Hours (Table) 08/27/18 08/27/18 08/27/18 Range/Units 08:20 08:20 16:45 RDW 16.0 H (11.5-15.5) % Chloride 110 H (98-107) mmol/L Carbon Dioxide 21 L (22-30) mmol/L POC Glucose (mg/dL) 115 H (75-99) mg/dL TSH 11.900 H (0.465-4.680) mIU/L Free T4 0.58 L (0.78-2.19) ng/dL Microbiology - Last 24 Hours (Table) 08/26/18 01:30 Urine Culture - Preliminary Urine,Voided Gram Neg Bacilli 08/26/18 01:30 Blood Culture - Preliminary Blood No Growth after 24 hours Assessment and Plan Assessment: Acute pyelonephritis Sepsis secondary to acute pyelonephritis with UTI. Urine cultures showing gram- negative bacilli. History of renal stones with removal Left 4 mm nonobstructive renal calculi Hypothyroidism. Anxiety/depression Recurrent urinary tract infection. Previous culture showed MSSA and E. coli Nicotine addiction DVT prophylaxis with heparin subcu Plan: Patient be continued on IV hydration, antibiotics in the form of ceftriaxone and follow-up urine culture reports. Tylenol for fever and pain management. Urology recommends outpatient follow-up.. Further recommendations based on the clinical course. Time with Patient: Greater than 30
[2018-08-28] MEDS: SODIUM CHLORIDE 0.9% 1,000 ML IV SCH (01:11)
[2018-08-28] MEDS: HEPARIN SODIUM,PORCINE 5,000 UNIT/ML 1 ML VIAL SQ SCH ×4 (01:12→16:32)
[2018-08-28] MEDS: IBUPROFEN 400 MG TAB PO PRN ×2 (05:33→19:08)
[2018-08-28] MEDS: LEVOTHYROXINE 50 MCG TAB PO SCH (05:33)
[2018-08-28 06:48] LABS: Glucose,Whole Blood 94 mg/dL (75-99)
[2018-08-28] MEDS: NICOTINE 14MG/24HR PATCH TRANSDERM SCH (08:49)
[2018-08-29] MEDS: HEPARIN SODIUM,PORCINE 5,000 UNIT/ML 1 ML VIAL SQ SCH ×2 (00:57→08:52)
[2018-08-29 08:10] VITALS: BP 86/51; PULSE 79; RESP 12; TEMP 98.3
[2018-08-29] MEDS: LEVOTHYROXINE 50 MCG TAB PO SCH (08:19)
[2018-08-29] MEDS: NICOTINE 14MG/24HR PATCH TRANSDERM SCH (08:53)
== END 2018-08-29 12:08 | disposition home or self-care (01) | DRG 872 ==
LOC: EC 00:18 → 4SSUR 04:26 → OBSVTOIN 08-27 11:30
PROVIDERS: ADMIT Internal Medicine; ATTEND Internal Medicine
DX: A41.50 Gram-negative sepsis, unspecified (principal); N10 Acute pyelonephritis; E03.9 Hypothyroidism, unspecified; F17.200 Nicotine dependence, unspecified, uncomplicated; F32.9 Major depressive disorder, single episode, unspecified; F41.9 Anxiety disorder, unspecified; N20.0 Calculus of kidney; Z87.440 Personal history of urinary (tract) infections; Z87.442 Personal history of urinary calculi; Z80.9 Family history of malignant neoplasm, unspecified
CPT/HCPCS: 36415; 74150; 80048; 80053; 81001; 81025; 83605; 84439; 84443; 85025; 87040; 87077; 87086; 87186; 93005; 96365; 96366; 96375; 99285

== ENCOUNTER → 2021-06-18 | Outpatient (CLI) | payer BC ==
--- NOTE | 2021-06-19 11:01 | MM ---
Reason for exam: screening (asymptomatic). Last mammogram was performed 3 years and 6 months ago. History: Patient is postmenopausal. Family history of breast cancer in paternal grandmother and breast cancer in paternal aunt. Taking hormonal contraceptives beginning at age 35. Physical Findings: A clinical breast exam by your physician is recommended on an annual basis and results should be correlated with mammographic findings. MG Screening Mammo w CAD Bilateral CC and MLO view(s) were taken. Prior study comparison: December 08, 2017, bilateral MG screening mammo w CAD. October 07, 2014, bilateral MG diagnostic mammo w CAD [facility]. There are scattered fibroglandular densities. No significant changes when compared with prior studies. ASSESSMENT: Benign, BI-RAD 2 RECOMMENDATION: Routine screening mammogram of both breasts in 1 year.
== END | disposition home or self-care (01) ==
LOC: RADMAMWWP 14:58
PROVIDERS: ATTEND Family Medicine
DX: Z12.31 Encounter for screening mammogram for malignant neoplasm of breast (principal); Z78.0 Asymptomatic menopausal state; Z80.3 Family history of malignant neoplasm of breast
CPT/HCPCS: 77067

== ENCOUNTER → 2023-09-19 | Outpatient (CLI) | payer BC ==
--- NOTE | 2023-09-21 14:17 | MM ---
Reason for Exam: Screening (asymptomatic). Last mammogram was performed 2 year(s) and 3 month(s) ago. Patient History: Menarche at age 13. First Full-Term at age 19. Postmenopausal. Paternal grandmother had breast cancer. Paternal aunt had breast cancer. Risk Values: Jessica 5 year model risk: 0.7%. NCI Lifetime model risk: 6.7%. Prior Study Comparison: 10/07/2014 Bilateral Diagnostic Mammogram, [facility]. 12/08/2017 Bilateral Screening Mammogram, [facility]. 06/18/2021 Bilateral Screening Mammogram, [facility]. Tissue Density: There are scattered areas of fibroglandular density. Findings: Analyzed By CAD. Right breast: There is no suspicious group of microcalcifications or new suspicious mass. Left breast: There is no suspicious group of microcalcifications or new suspicious mass. Overall Assessment: Negative, BI-RAD 1 Management: Screening Mammogram of both breasts in [address] [facility] will attempt to contact patient to return for supplemental views and ultrasound if indicated. Patient should continue monthly self-breast exams. A clinical breast exam by your physician is recommended on an annual basis. This exam should not preclude additional follow-up of suspicious palpable abnormalities. Note on Jessica scores and lifetime risk: 1. A Jessica score greater than 3% is considered moderate risk. If this is the case, consider specialist referral to assess eligibility for a risk reducing agent. 2. If overall lifetime risk for the development of breast cancer is 20% or higher, the patient may qualify for future screening with alternating mammogram and breast MRI. Electronically signed and approved by: Farshad Daugherty DO
== END | disposition home or self-care (01) ==
LOC: RADMAMWWP 14:57
PROVIDERS: ATTEND Family Medicine
DX: Z12.31 Encounter for screening mammogram for malignant neoplasm of breast (principal); Z78.0 Asymptomatic menopausal state; Z80.3 Family history of malignant neoplasm of breast
CPT/HCPCS: 77063; 77067

== ENCOUNTER 2023-10-19 17:10 | Inpatient (IN) | payer BC ==
--- NOTE | 2023-10-19 17:29 | ED ---
Abdominal Pain HPI - General Source: patient, RN notes reviewed Mode of arrival: ambulatory Limitations: no limitations <Beatriz Brantley - Last Filed: 10/19/23 17:28> <Carolyne Muhammad - Last Filed: 10/19/23 22:25> - General Stated Complaint: kidney stones Time Seen by Provider: 10/19/23 17:28 - History of Present Illness Initial Comments: Note: 48-year-old female presented to the ER with a chief complaint of right flank pain. She reports extensive history of kidney stones and reports pain feels similar. She states her pain started yesterday and endorses fevers, chills, dysuria and cloudy urine. (Beatriz Brantley) This is a 48-year-old female presents emergency department chief complaint of right flank and right lower quadrant abdominal pain over the past 2 days. She states that she has noticed that her urine has been cloudy, experiencing dysuria, increase in urgency and frequency. Additionally, patient has a history of nephrolithiasis and pyelonephritis which required hospitalization in 2008 pain. She reports feeling feverish today and chills. She endorses nausea no vomiting. Denies diarrhea, constipation. Patient is currently being treated for bacterial vaginosis with Flagyl that was started on October 15. (Carolyne Muhammad) - Related Data Home Medications Medication Instructions Recorded Confirmed Levothyroxine Sodium [Synthroid] 150 mcg PO DAILY 10/19/23 10/19/23 metroNIDAZOLE [Flagyl] 500 mg PO BID 10/19/23 10/19/23 Allergies Allergy/AdvReac Type Severity Reaction Status Date / Time No Known Allergies Allergy Verified 10/19/23 20:46 Review of Systems ROS Other: All systems not noted in ROS Statement are negative. <Beatriz Brantley - Last Filed: 10/19/23 17:28> ROS Other: All systems not noted in ROS Statement are negative. <Carolyne Muhammad - Last Filed: 10/19/23 22:25> ROS Statement: Those systems with pertinent positive or pertinent negative responses have been documented in the HPI. Past Medical History Past Medical History: Thyroid Disorder Additional Past Medical History / Comment(s): past urinary tract infections, kidney stones History of Any Multi-Drug Resistant Organisms: None Reported Past Surgical History: Section Additional Past Surgical History / Comment(s): kidney stone removal; uterine ablation Past Anesthesia/Blood Transfusion Reactions: No Reported Reaction Past Psychological History: Anxiety, Depression Past Alcohol Use History: None Reported Past Drug Use History: None Reported - Past Family History Mother Family Medical History: Cancer Additional Family Medical History / Comment(s): <DouglasmackenzieBeatriz - Last Filed: 10/19/23 17:28> General Exam <ZackfazalmackenzieBeatriz - Last Filed: 10/19/23 17:28> General appearance: alert, in no apparent distress Head exam: Present: atraumatic, normocephalic, normal inspection Eye exam: Present: normal appearance, PERRL, EOMI. Absent: scleral icterus, conjunctival injection, periorbital swelling ENT exam: Present: normal exam, mucous membranes moist Neck exam: Present: normal inspection. Absent: tenderness, meningismus, lymphadenopathy Respiratory exam: Present: normal lung sounds bilaterally. Absent: respiratory distress, wheezes, rales, rhonchi, stridor Cardiovascular Exam: Present: regular rate, normal rhythm, normal heart sounds. Absent: systolic murmur, diastolic murmur, rubs, gallop, clicks GI/Abdominal exam: Present: soft, tenderness (Right lower abdomen). Absent: guarding, rebound, rigid Extremities exam: Present: normal inspection, full ROM, normal capillary refill. Absent: tenderness, pedal edema, joint swelling, calf tenderness Back exam: Present: normal inspection, CVA tenderness (R). Absent: CVA tenderness (L) Neurological exam: Present: alert, oriented X3, CN II-XII intact Psychiatric exam: Present: normal affect, normal mood Skin exam: Present: warm, dry, intact, normal color. Absent: rash <Carolyne Muhammad - Last Filed: 10/19/23 22:25> - General Exam Comments Initial Comments: Visual Physical Exam Vital signs reviewed General: Well-appearing, nontoxic, no acute distress. Head: Normocephalic, atraumatic Eyes: PERRLA, EOMI ENT: Airway patent Chest: Nonlabored breathing Skin: No visual rash, normal skin tone Neuro: Alert and oriented 3 Musculoskeletal: No gross abnormalities (Beatriz Brantley) Course Vital Signs 10/19/23 10/19/23 10/19/23 17:31 18:59 20:55 Temperature 99.0 F 101.1 F H Pulse Rate 114 H 79 Respiratory 20 18 Rate Blood Pressure 112/69 113/74 O2 Sat by Pulse 95 99 Oximetry Medical Decision Making <Beatriz Brantley - Last Filed: 10/19/23 17:28> - Lab Data Result diagrams: 10/19/23 18:55 10/19/23 18:55 <Carolyne Muhammad - Last Filed: 10/19/23 22:25> - Medical Decision Making I performed the quick note portion of this chart. Electronically signed by Beatriz Brantley PA-C (Beatriz Brantley) Was pt. sent in by a medical professional or institution ([facility], [facility], urgent care, hospital, or snf...) When possible be specific @ -No Did you speak to anyone other than the patient for history (EMS, parent, family, police, friend...)? What history was obtained from this source @ -No Did you review nursing and triage notes (agree or disagree)? Why? @ -I reviewed and agree with nursing and triage notes Were old charts reviewed (outside hosp., previous admission, EMS record, old EKG, old radiological studies, urgent care reports/EKG's, snf records)? Report findings @ -Reviewed patient's chart note from July 2018 she was diagnosed with pyelonephritis and discharged home on antibiotics instructed to follow-up with urology. Differential Diagnosis (chest pain, altered mental status, abdominal pain women, abdominal pain men, vaginal bleeding, weakness, fever, dyspnea, syncope, headache, dizziness, GI bleed, back pain, seizure, CVA, palpatations, mental health, musculoskeletal)? @ -Differential Abdominal Pain Women: Appendicitis, Cholecystitis, diverticulosis, ischemic bowel, pancreatitis, hepatitis, UTI, gastroenteritis, AAA, incarcerated hernia, bowel obstruction, constipation, inflammatory bowel, hepatitis, peptic ulcer disease, splenic infarction, perforated viscus, vulvitis, ovarian torsion, PID, kidney stone, placenta abruption, this is not meant to be an all-inclusive list EKG interpreted by me (3pts min.). @ -None X-rays interpreted by me (1pt min.). @ -None done CT interpreted by me (1pt min.). @ -CT of the abdomen pelvis without contrast reveals a couple small nonobstructing bilateral renal calculi, no ureteral calculi hydronephrosis. Mild perirenal periaortic fat stranding on the right. U/S interpreted by me (1pt. min.). @ -None done What testing was considered but not performed or refused? (CT, X-rays, U/S, labs)? Why? @ -None What meds were considered but not given or refused? Why? @ -None Did you discuss the management of the patient with other professionals (professionals i.e. , PA, [facility], lab, RT, psych nurse, social services technician, creative services manager, teacher, third officer, piano case and bench assembler)? Give summary @ -No Was smoking cessation discussed for >3mins.? @ -No Was critical care preformed (if so, how long)? @ -No Were there social determinants of health that impacted care today? How? (Homelessness, low income, unemployed, alcoholism, drug addiction, transportation, low edu. Level, literacy, decrease access to med. care, half-way, rehab)? @ -No Was there de-escalation of care discussed even if they declined (Discuss DNR or withdrawal of care, Hospice)? DNR status @ -No What co-morbidities impacted this encounter? (DM, HTN, Smoking, COPD, CAD, Cancer, CVA, ARF, Chemo, Hep., AIDS, mental health diagnosis, sleep apnea, morbid obesity)? @ -None Was patient admitted / discharged? Hospital course, mention meds given and route, prescriptions, significant lab abnormalities, going to OR and other pertinent info. @ -Admitted. 48-year-old female with right lower quadrant and flank pain. On examination patient's abdomen is soft with tenderness over the right lower quadrant no signs of rebound or rigidity. At this time patient will be given IV antibiotics, pain medication, and labs will be drawn in addition to urinalysis and CT of the abdomen. Patient is agreement this plan. On reevaluation patient's vital she was found to be febrile of 101.1 and tachycardic of 114. Tylenol and Motrin given. On reevaluation, patient states that her pain has markedly improved after medication. CBC revealed leukocytosis of 15.6, neutrophils of 12.8. CMP unremarkable. Urinalysis reveals signs of infection including small blood, positive nitrates, leukocyte esterase, [address] of the abdomen pelvis without contrast reveals a couple small nonobstructing bilateral renal calculi, no ureteral calculi hydronephrosis. Mild perirenal periaortic fat stranding on the right.spoke with Dr. Abiodun solomon to admission for meeting SIRS criteria and pyelonephritis. Admission accepted. Discussed with my attending Dr. Mallory Undiagnosed new problem with uncertain prognosis? @ -No Drug Therapy requiring intensive monitoring for toxicity (Heparin, Nitro, Insulin, Cardizem)? @ -No Were any procedures done? @ -No Diagnosis/symptom? @ -Pyelonephritis Acute, or Chronic, or Acute on Chronic? @ -Acute Uncomplicated (without systemic symptoms) or Complicated (systemic symptoms)? @ -Complicated Side effects of treatment? @ -No Exacerbation, Progression, or Severe Exacerbation? @ -No Poses a threat to life or bodily function? How? (Chest pain, [place], [place], pneumonia, PE, COPD, DKA, ARF, appy, cholecystitis, CVA, Diverticulitis, Homicidal, Suicidal, threat to staff... and all critical care pts) @ -Possibly, untreated pyelonephritis can lead to bacteremia and sepsis. (Carolyne Muhammad) - Lab Data Lab Results 10/19/23 10/19/23 10/19/23 Range/Units 17:36 18:55 18:55 WBC 15.6 H (3.8-10.6) k/uL RBC 5.01 (3.80-5.40) m/uL Hgb 14.7 (11.4-16.0) gm/dL Hct 46.8 H (34.0-46.0) % MCV 93.3 (80.0-100.0) fL MCH 29.3 (25.0-35.0) pg MCHC 31.4 (31.0-37.0) g/dL RDW 13.2 (11.5-15.5) % Plt Count 228 (150-450) k/uL MPV 9.0 Neutrophils % 82 % Lymphocytes % 10 % Monocytes % 6 % Eosinophils % 1 % Basophils % 0 % Neutrophils # 12.8 H (1.3-7.7) k/uL Lymphocytes # 1.5 (1.0-4.8) k/uL Monocytes # 0.9 (0-1.0) k/uL Eosinophils # 0.1 (0-0.7) k/uL Basophils # 0.0 (0-0.2) k/uL Sodium 140 (137-145) mmol/L Potassium 4.3 (3.5-5.1) mmol/L Chloride 109 H (98-107) mmol/L Carbon Dioxide 24 (22-30) mmol/L Anion Gap 7 mmol/L BUN 13 (7-17) mg/dL Creatinine 0.76 (0.52-1.04) mg/dL Est GFR (CKD-EPI)AfAm >90 (>60 ml/min/1.73 sqM) Est GFR (CKD-EPI)NonAf >90 (>60 ml/min/1.73 sqM) Glucose 117 H (74-99) mg/dL Plasma Lactic Acid Freddie (0.7-2.0) mmol/L Calcium 9.7 (8.4-10.2) mg/dL Total Bilirubin 0.5 (0.2-1.3) mg/dL AST 19 (14-36) U/L ALT 19 (4-34) U/L Alkaline Phosphatase 52 (38-126) U/L Total Protein 7.6 (6.3-8.2) g/dL Albumin 4.5 (3.5-5.0) g/dL Urine Color Colorless Urine Appearance Cloudy H (Clear) Urine pH 7.0 (5.0-8.0) Ur Specific [place] 1.011 (1.001-1.035) Urine Protein Negative (Negative) Urine Glucose (UA) Negative (Negative) Urine Ketones Negative (Negative) Urine Blood Small H (Negative) Urine Nitrite Positive H (Negative) Urine Bilirubin Negative (Negative) Urine Urobilinogen <2.0 (<2.0) mg/dL Ur Leukocyte Esterase Large H (Negative) Urine RBC 4 (0-5) /hpf Urine WBC 77 H (0-5) /hpf Ur Squamous Epith Cells 2 (0-4) /hpf Urine Bacteria Many H (None) /hpf Urine Mucus Rare H (None) /hpf 10/19/23 Range/Units 18:55 WBC (3.8-10.6) k/uL RBC (3.80-5.40) m/uL Hgb (11.4-16.0) gm/dL Hct (34.0-46.0) % MCV (80.0-100.0) fL MCH (25.0-35.0) pg MCHC (31.0-37.0) g/dL RDW (11.5-15.5) % Plt Count (150-450) k/uL MPV Neutrophils % % Lymphocytes % % Monocytes % % Eosinophils % % Basophils % % Neutrophils # (1.3-7.7) k/uL Lymphocytes # (1.0-4.8) k/uL Monocytes # (0-1.0) k/uL Eosinophils # (0-0.7) k/uL Basophils # (0-0.2) k/uL Sodium (137-145) mmol/L Potassium (3.5-5.1) mmol/L Chloride (98-107) mmol/L Carbon Dioxide (22-30) mmol/L Anion Gap mmol/L BUN (7-17) mg/dL Creatinine (0.52-1.04) mg/dL Est GFR (CKD-EPI)AfAm (>60 ml/min/1.73 sqM) Est GFR (CKD-EPI)NonAf (>60 ml/min/1.73 sqM) Glucose (74-99) mg/dL Plasma Lactic Acid Freddie 0.9 (0.7-2.0) mmol/L Calcium (8.4-10.2) mg/dL Total Bilirubin (0.2-1.3) mg/dL AST (14-36) U/L ALT (4-34) U/L Alkaline Phosphatase (38-126) U/L Total Protein (6.3-8.2) g/dL Albumin (3.5-5.0) g/dL Urine Color Urine Appearance (Clear) Urine pH (5.0-8.0) Ur Specific [place] (1.001-1.035) Urine Protein (Negative) Urine Glucose (UA) (Negative) Urine Ketones (Negative) Urine Blood (Negative) Urine Nitrite (Negative) Urine Bilirubin (Negative) Urine Urobilinogen (<2.0) mg/dL Ur Leukocyte Esterase (Negative) Urine RBC (0-5) /hpf Urine WBC (0-5) /hpf Ur Squamous Epith Cells (0-4) /hpf Urine Bacteria (None) /hpf Urine Mucus (None) /hpf Disposition <Beatriz Brantley - Last Filed: 05/29/24 17:28> Is patient prescribed a controlled substance at d/c from ED?: No Decision to Admit Reason: Admit from EC Decision Date: 10/19/23 Decision Time: 20:02 <Carolyne Muhammad - Last Filed: 10/19/23 22:25> Clinical Impression: Pyelonephritis Disposition: ADMITTED IP TO THIS HOSP Condition: Good
[2023-10-19 17:51] LABS: Appearance,Urine Cloudy (Clear); Bacteria,Urine Many /hpf; Bilirubin,Urine Negative (Negative); Blood,Urine Small (Negative); Color,Urine Colorless; Glucose,Urine (UA) Negative (Negative); Ketones,Urine Negative (Negative); Leukocyte Esterase,Urine Large (Negative); Mucus,Urine Rare /hpf; Nitrite,Urine Positive (Negative); Protein,Urine Negative (Negative); RBC,Urine 4 /hpf (0-5); Specific Gravity,Urine 1.011 (1.001-1.035); Squamous Epithelial Cell,Urine 2 /hpf (0-4); Urobilinogen,Urine <2.0 mg/dL (<2.0); WBC,Urine 77 /hpf (0-5)
[2023-10-19] MEDS: IBUPROFEN 600 MG TAB PO STA (19:04)
[2023-10-19] MEDS: ONDANSETRON 4 MG/2 ML VIAL IVP STA (19:04)
[2023-10-19] MEDS: ACETAMINOPHEN TAB 500 MG TAB PO STA (19:04)
[2023-10-19] MEDS: HYDROmorphone 0.5 MG/0.5 ML SYRINGE IVP STA (19:05)
[2023-10-19 19:15] LABS: Basophils % (A) 0 %; Eosinophils # (A) 0.1 k/uL (0-0.7); Eosinophils % (A) 1 %; HCT 46.8 % (34.0-46.0); HGB 14.7 gm/dL (11.4-16.0); Lymphocytes # (A) 1.5 k/uL (1.0-4.8); Lymphocytes % (A) 10 %; MCH 29.3 pg (25.0-35.0); MCHC 31.4 g/dL (31.0-37.0); MCV 93.3 fL (80.0-100.0); Monocytes # (A) 0.9 k/uL (0-1.0); Monocytes % (A) 6 %; Neutrophils # (A) 12.8 k/uL (1.3-7.7); Neutrophils % (A) 82 %; Platelet Count 228 k/uL (150-450); RBC 5.01 m/uL (3.80-5.40); RDW 13.2 % (11.5-15.5); WBC 15.6 k/uL (3.8-10.6)
[2023-10-19 19:25] LABS: ALT 19 U/L (4-34); AST 19 U/L (14-36); African American GFR (CKD) >90 (>60 ml/min/1.73 sqM); Albumin 4.5 g/dL (3.5-5.0); Alkaline Phosphatase 52 U/L (38-126); Anion Gap 7 mmol/L; Blood Urea Nitrogen 13 mg/dL (7-17); Calcium 9.7 mg/dL (8.4-10.2); Carbon Dioxide 24 mmol/L (22-30); Chloride 109 mmol/L (98-107); Glucose 117 mg/dL (74-99); Non-African American GFR(CKD) >90 (>60 ml/min/1.73 sqM); Potassium 4.3 mmol/L (3.5-5.1); Sodium 140 mmol/L (137-145); Total Bilirubin 0.5 mg/dL (0.2-1.3); Total Protein 7.6 g/dL (6.3-8.2)
[2023-10-19] MEDS: SODIUM CHLORIDE 0.9% 1,000 ML IV STA (19:52)
[2023-10-19] MEDS: cefTRIAXone IN SWFI 1,000 MG/10 ML SYRINGE IVP STA (19:53)
[2023-10-19] MEDS ORDERED: NALOXONE 0.4 MG/ML 1 ML VIAL IV PRN (20:02)
--- NOTE | 2023-10-19 21:22 | CT ---
EXAMINATION TYPE: CT abdomen pelvis wo con CT DLP: 934.9 mGycm, Automated exposure control for dose reduction was used. DATE OF EXAM: 10/19/2023 7:28 PM COMPARISON: None. CLINICAL INDICATION:Female, 48 years old with history of right flank and RLQ pain; RLQ abdominal pain x 2 days TECHNIQUE: Axial CT of the abdomen and pelvis. Sagittal and coronal reformats were created on a [email or web address] workstation. Contrast used: mL of , (none if empty) Oral contrast used: without Oral Contrast (none if empty) FINDINGS: LOWER CHEST: Unremarkable ABDOMEN LIVER: Diffusely hypoattenuating parenchyma, suggesting steatosis. Liver appears enlarged, right lobe is 21.2 cm craniocaudal. GALLBLADDER AND BILE DUCTS: Unremarkable gallbladder. No biliary ductal dilatation. PANCREAS: Fatty infiltrated without acute findings. SPLEEN: Unremarkable. ADRENAL GLANDS: Unremarkable. KIDNEYS AND URETERS: A 2 mm calculus in the right lower pole, 8 x 3 mm calculus in the left lower franko e medially, plus a couple punctate additional calculi suggested in the mid left kidney. There is no c lear evidence of an obstructing ureteral stone or significant dilatation of the ureters. There is mil d periureteric fat stranding suggested on the right. PELVIS BLADDER: Unremarkable. No visible luminal calculi. REPRODUCTIVE: Unremarkable. ABDOMEN & PELVIS STOMACH AND BOWEL: Stomach and small bowel are nondistended, no evidence of obstruction. No CT evid ence of appendicitis. Mild/moderate colonic stool. An acute abnormality is not identified. PERITONEUM/RETROPERITONEUM: No evidence of pneumoperitoneum or free fluid. VASCULATURE: Mild to moderate atherosclerotic calcifications are present throughout the abdominal aor ta and its branches. No evidence of aortic aneurysm. LYMPH NODES: No enlarged nodes by CT size criteria. SOFT TISSUE/ABDOMINAL WALL: Unremarkable MUSCULOSKELETAL: No acute osseous abnormalities. Mild degenerative changes of the visualized spine. Mild chronic deformity of the distal coccyx. IMPRESSION: 1. A couple small nonobstructing bilateral renal calculi. 2. No ureteral calculi or hydronephrosis. 3. Question mild perirenal/periureteric fat stranding on the right, may represent recently passed st one. Correlate to exclude any superimposed infection.
[2023-10-19] MEDS: SODIUM CHLORIDE 0.9% 500 ML 250 ML IV ONE (22:01)
[2023-10-19] MEDS: SODIUM CHLORIDE 0.9% 1,000 ML IV SCH (22:01)
[2023-10-20] MEDS: KETOROLAC 15 MG/ML 1 ML VIAL IVP PRN (06:19)
[2023-10-20] MEDS: LEVOTHYROXINE 75 MCG TAB PO SCH (06:20)
[2023-10-20 08:28] LABS: Basophils # (A) 0.05 X 10*3/uL (0.00-0.10); Basophils % (A) 0.5 %; Eosinophils # (A) 0.16 X 10*3/uL (0.04-0.35); Eosinophils % (A) 1.4 %; HGB 14.5 g/dL (12.0-15.0); Lymphocytes # (A) 1.98 X 10*3/uL (0.90-5.00); Lymphocytes % (A) 17.8 %; MCH 29.4 pg (27.0-32.0); MCHC 31.5 g/dL (32.0-37.0); MCV 93.3 FL (80.0-97.0); Mean Platelet Volume 11.5 FL (9.5-12.2); Monocytes % (A) 4.5 %; NRBC Per 100 WBC 0 X 10*3/uL (0.00-0.01); Neutrophils # (A) 8.36 X 10*3/uL (1.80-7.70); Neutrophils % (A) 75.3 %; Platelet Count 199 X 10*3/uL (140-440); RBC 4.93 X 10*6/uL (4.10-5.20); RDW 13.5 % (11.5-14.5)
[2023-10-20] MEDS: metroNIDAZOLE 500 MG TAB PO SCH (09:18)
[2023-10-20] MEDS: ENOXAPARIN 40 MG/0.4 ML SYRINGE SQ SCH (10:06)
[2023-10-20 13:52] LABS: ALT 15 U/L (8-44); AST 20 U/L (13-35); Albumin 4.2 g/dL (3.8-4.9); Alkaline Phosphatase 56 U/L (41-126); BUN/Creat Ratio 14.62 Ratio (12.00-20.00); Blood Urea Nitrogen 11.7 mg/dL (9.0-27.0); Calcium 8.8 mg/dL (8.7-10.3); Carbon Dioxide 18.3 mmol/L (21.6-31.8); Chloride 112 mmol/L (96-109); Globulin 2.8 g/dL (1.6-3.3); Glucose 97 mg/dL (70-110); Sodium 144 mmol/L (135-145); Total Bilirubin 0.4 mg/dL (0.3-1.2)
[2023-10-20 15:06] LABS: Appearance,Urine Cloudy (Clear); Bacteria,Urine Rare /hpf; Bilirubin,Urine Negative (Negative); Blood,Urine Trace (Negative); Color,Urine Yellow; Glucose,Urine (UA) Negative (Negative); Ketones,Urine Negative (Negative); Leukocyte Esterase,Urine Large (Negative); Mucus,Urine Moderate /hpf; Nitrite,Urine Negative (Negative); Protein,Urine Trace (Negative); RBC,Urine 8 /hpf (0-5); Squamous Epithelial Cell,Urine 2 /hpf (0-4); Urobilinogen,Urine <2.0 mg/dL (<2.0); WBC,Urine 142 /hpf (0-5)
[2023-10-20] MEDS: ACETAMINOPHEN TAB 325 MG TAB PO PRN (17:07)
--- NOTE | 2023-10-20 17:36 | P.HPIM ---
History of Present Illness H&P Date: 10/20/23 Chief Complaint: Right flank pain This is a pleasant 48-year-old patient who follows with Dr. Wali Hector. Has a known history of kidney stones. Patient today started ago started feeling unwell. Pain in the right flank. Decreased appetite. Pain started going down to the right pubic area. Started having fever and chills. Having cloudy urine and painful urination. Patient started on IV ceftriaxone in the ER. Tired Review of systems: GEN.: Fever chills decreased appetite EYES: None HEENT: None NECK: None RESPIRATORY: None CARDIOVASCULAR: None GASTROINTESTINAL: As above] GENITOURINARY: As above MUSCULOSKELETAL: None LYMPHATICS: None HEMATOLOGICAL: None PSYCHIATRY: None NEUROLOGICAL: None Social history: Patient smoked a pack a day for 25 years stopped 5 months ago. Lives with her boyfriend. Attends long term work. Physical examination: VITAL SIGNS: 101.1, 114, 20, 112 x 69, 95% room air upon presentation GENERAL: BMI 37.1, reclining bed awake slightly tired. EYES: Pupils equal. Conjunctiva greg l. HEENT: External appearance of nose and ears normal, oral cavity grossly normal. NECK: JVD not raised; masses not palpable. HEART: First and second heart sounds are normal; no edema. LUNGS: Respiratory rate normal; clear to auscultation. ABDOMEN: Soft, right renal angle tenderness r, liver spleen not palpable, no masses palpable. PSYCH: Alert and oriented x3; mood and affect greg l. MUSCULOSKELETAL:No Clubbing/cyanosis;muscles-grossly intact NEUROLOGICAL: Cranial nerves grossly intact; no facial asymmetry, power and sensation grossly intact. LYMPHATICS: No lymph nodes palpable in the axilla and neck INVESTIGATIONS, reviewed in the clinical context: October 20, 2023: White count 9.1 hemoglobin 14.5 platelets 199 sodium 144 potassium 5. 11.7 creatinine 0.8 UA positive for blood, nitrite, leukoesterase, WBC October 18: White count 15.[address] scan abdomen pelvis: Small couple nonobstructing bilateral renal calculi question mild periureteric renal fat stranding on the right. Assessment plan: -Acute right pyelonephritis precipitated by kidney stone causing sepsis IV ceftriaxone. Cultures. Normal saline 150 cc an hour -Sepsis from right para nephritis IV fluids. Antibiotics -Hypothyroid Synthroid 150 mcg a day -Obesity BMI 37.1 Weight loss measures Care was discussed with the patient. Questions answered. Given the complexity and severity of patient's condition expect the patient to be in the hospital at least for 2 overnights Past Medical History Past Medical History: Thyroid Disorder Additional Past Medical History / Comment(s): past urinary tract infections, kidney stones History of Any Multi-Drug Resistant Organisms: None Reported Past Surgical History: Section Additional Past Surgical History / Comment(s): kidney stone removal; uterine ablation Past Anesthesia/Blood Transfusion Reactions: No Reported Reaction Smoking Status: Former smoker Past Alcohol Use History: None Reported Additional Past Alcohol Use History / Comment(s): Start smoking at 21, smoke less then a pack a day Past Drug Use History: None Reported - Past Family History Mother Family Medical History: Cancer Additional Family Medical History / Comment(s): Medications and Allergies Home Medications Medication Instructions Recorded Confirmed Type Levothyroxine Sodium [Synthroid] 150 mcg PO DAILY 10/19/23 10/19/23 History metroNIDAZOLE [Flagyl] 500 mg PO BID 10/19/23 10/19/23 History Allergies Allergy/AdvReac Type Severity Reaction Status Date / Time No Known Allergies Allergy Verified 10/19/23 20:46 Physical Exam Vitals: Vital Signs Temp Pulse Pulse Resp BP BP BP 10/20/23 07:00 98.9 F 93 16 96/58 10/20/23 01:30 97.5 F L 73 17 113/66 102/69 10/19/23 23:41 70 18 86/49 112/61 10/19/23 22:07 98 F 81 16 86/54 10/19/23 20:55 79 18 113/74 10/19/23 18:59 101.1 F H 10/19/23 17:31 99.0 F 114 H 20 112/69 Pulse Ox 10/20/23 07:00 98 10/20/23 01:30 96 10/19/23 23:41 10/19/23 22:07 96 10/19/23 20:55 99 10/19/23 18:59 10/19/23 17:31 95 Intake and Output 10/19/23 10/20/23 10/20/23 22:59 06:59 14:59 Other: Voiding Method Toilet # Voids 2 Weight 104.326 kg Results CBC & Chem 7: 10/20/23 06:12 10/20/23 06:12 Labs: Abnormal Lab Results - Last 24 Hours (Table) 10/19/23 10/19/23 10/19/23 Range/Units 17:36 18:55 18:55 WBC 15.6 H (3.8-10.6) k/uL Hct 46.8 H (34.0-46.0) % MCHC (32.0-37.0) g/dL Immature Gran # (0.00-0.04) X 10*3/uL Neutrophils # 12.8 H (1.3-7.7) k/uL Chloride 109 H (98-107) mmol/L Glucose 117 H (74-99) mg/dL Urine Appearance Cloudy H (Clear) Urine Blood Small H (Negative) Urine Nitrite Positive H (Negative) Ur Leukocyte Esterase Large H (Negative) Urine WBC 77 H (0-5) /hpf Urine Bacteria Many H (None) /hpf Urine Mucus Rare H (None) /hpf 10/20/23 Range/Units 06:12 WBC 11.10 H (3.8-10.6) k/uL Hct (34.0-46.0) % MCHC 31.5 L (32.0-37.0) g/dL Immature Gran # 0.05 H (0.00-0.04) X 10*3/uL Neutrophils # 8.36 H (1.3-7.7) k/uL Chloride (98-107) mmol/L Glucose (74-99) mg/dL Urine Appearance (Clear) Urine Blood (Negative) Urine Nitrite (Negative) Ur Leukocyte Esterase (Negative) Urine WBC (0-5) /hpf Urine Bacteria (None) /hpf Urine Mucus (None) /hpf
[2023-10-20] MEDS: IBUPROFEN 400 MG TAB PO PRN (19:23)
[2023-10-21] MEDS: ONDANSETRON 4 MG/2 ML VIAL IVP PRN (08:03)
--- NOTE | 2023-10-21 16:26 | P.PN ---
Progress Note - Text Progress Note Date: 10/21/23 Chief Complaint: Right flank pain This is a pleasant 48-year-old patient who follows with Dr. Wali Hector. Has a known history of kidney stones. Patient today started ago started feeling unwell. Pain in the right flank. Decreased appetite. Pain started going down to the right pubic area. Started having fever and chills. Having cloudy urine and painful urination. Patient started on IV ceftriaxone in the ER. Tired October 20: Patient did felt nauseated had an episode of vomiting this morning. Diet discussed with the patient. Decreased right flank pain. On IV ceftriaxone. IV fluids. Told patient to increase activity. Had spiked a fever 102.6 last night. Active Medications Acetaminophen (Acetaminophen Tab 325 Mg Tab) 650 mg PO Q6HR PRN PRN Reason: Mild Pain or Fever > 100.5 Last Admin: 10/21/23 11:30 Dose: 650 mg Enoxaparin Sodium (Enoxaparin 40 Mg/0.4 Ml Syringe) 40 mg SQ DAILY [facility] Last Admin: 10/21/23 08:03 Dose: 40 mg Sodium Chloride (Saline 0.9%) 1,000 mls @ 150 mls/hr IV .Q6H40M [facility] Last Admin: 10/21/23 11:26 Dose: 150 mls/hr Ceftriaxone Sodium 1 gm/ (Sodium Chloride) 50 mls @ 100 mls/hr IVPB Q12HR [facility]; Protocol Last Admin: 10/21/23 08:03 Dose: 100 mls/hr Ibuprofen (Ibuprofen 400 Mg Tab) 400 mg PO Q6HR PRN PRN Reason: Mild Pain or Fever > 100.5 Last Admin: 10/20/23 19:23 Dose: 400 mg Ketorolac Tromethamine (Ketorolac 15 Mg/Ml 1 Ml Vial) 15 mg IVP Q6HR PRN PRN Reason: Moderate Pain (Scale 4 to 6) Stop: 10/22/23 20:03 Last Admin: 10/20/23 06:19 Dose: 15 mg Levothyroxine Sodium (Levothyroxine 75 Mcg Tab) 150 mcg PO DAILY@0630 [facility] Last Admin: 10/21/23 05:35 Dose: 150 mcg Naloxone HCl (Naloxone 0.4 Mg/Ml 1 Ml Vial) 0.2 mg IV Q2M PRN PRN Reason: Opioid Reversal Ondansetron HCl (Ondansetron 4 Mg/2 Ml Vial) 4 mg IVP Q8HR PRN PRN Reason: Nausea And Vomiting Last Admin: 10/21/23 08:03 Dose: 4 mg Social history: Patient smoked a pack a day for 25 years stopped 5 months ago. Lives with her boyfriend. Attends [employer] work. Physical examination: VITAL SIGNS: 102.6 last night. This morning 98.2, 69, 18, 146/83, 96% room air GENERAL: Laying in bed, tired EYES: Pupils equal. Conjunctiva greg l. HEENT: External appearance of nose and ears normal, oral cavity grossly normal. NECK: JVD not raised; masses not palpable. HEART: First and second heart sounds are normal; no edema. LUNGS: Respiratory rate normal; clear to auscultation. ABDOMEN: Soft, right renal angle tenderness r, liver spleen not palpable, no masses palpable. PSYCH: Alert and oriented x3; mood and affect greg l. MUSCULOSKELETAL:No Clubbing/cyanosis;muscles-grossly intact INVESTIGATIONS, reviewed in the clinical context: October 20, 2023: White count 9.1 hemoglobin 14.5 platelets 199 sodium 144 potassium 5. 11.7 creatinine 0.8 UA positive for blood, nitrite, leukoesterase, WBC October 18: White count 15.[address] scan abdomen pelvis: Small couple nonobstructing bilateral renal calculi question mild periureteric renal fat stranding on the right. Assessment plan: -Acute right pyelonephritis precipitated by kidney stone causing sepsis: Slow to respond IV ceftriaxone. Cultures. Normal saline 150 cc an hour -Sepsis from right pyelonephritis IV fluids. Antibiotics -Hypothyroid Synthroid 150 mcg a day -Obesity BMI 37.1 Weight loss measures Diet discussed. Up in a chair. Walk as tolerated. Continue antibiotics fluids. Past Medical History Past Medical History: Thyroid Disorder Additional Past Medical History / Comment(s): past urinary tract infections, kidney stones History of Any Multi-Drug Resistant Organisms: None Reported Past Surgical History: Section Additional Past Surgical History / Comment(s): kidney stone removal; uterine ablation Past Anesthesia/Blood Transfusion Reactions: No Reported Reaction Smoking Status: Former smoker Past Alcohol Use History: None Reported Additional Past Alcohol Use History / Comment(s): Start smoking at 21, smoke less then a pack a day Past Drug Use History: None Reported
[2023-10-22 05:28] LABS: Basophils % (A) 0 %; Eosinophils # (A) 0.2 k/uL (0-0.7); Eosinophils % (A) 2 %; HCT 38.6 % (34.0-46.0); HGB 12.5 gm/dL (11.4-16.0); Lymphocytes # (A) 2.4 k/uL (1.0-4.8); Lymphocytes % (A) 30 %; MCH 30.2 pg (25.0-35.0); MCHC 32.5 g/dL (31.0-37.0); MCV 92.9 fL (80.0-100.0); Mean Platelet Volume 9.2; Monocytes # (A) 0.6 k/uL (0-1.0); Monocytes % (A) 7 %; Neutrophils # (A) 4.8 k/uL (1.3-7.7); Neutrophils % (A) 57 %; Platelet Count 191 k/uL (150-450); RBC 4.16 m/uL (3.80-5.40); RDW 13.3 % (11.5-15.5); WBC 8.3 k/uL (3.8-10.6)
[2023-10-22 05:51] LABS: African American GFR (CKD) >90 (>60 ml/min/1.73 sqM); Anion Gap 2 mmol/L; Blood Urea Nitrogen 7 mg/dL (7-17); Calcium 8.5 mg/dL (8.4-10.2); Carbon Dioxide 23 mmol/L (22-30); Chloride 113 mmol/L (98-107); Glucose 90 mg/dL (74-99); Non-African American GFR(CKD) >90 (>60 ml/min/1.73 sqM); Potassium 4.2 mmol/L (3.5-5.1); Sodium 138 mmol/L (137-145)
[2023-10-22 07:36] VITALS: BP 116/73; PULSE 67; RESP 17; TEMP 97.8
== END 2023-10-22 13:33 | disposition home or self-care (01) | DRG 872 ==
LOC: EC 17:10 → 6NMEDSUR 19:57 → OBSVTOIN 19:58 → 6NMEDSUR 20:41
PROVIDERS: ADMIT Hospitalist; ATTEND Hospitalist
DX: A41.9 Sepsis, unspecified organism (principal); N12 Tubulo-interstitial nephritis, not specified as acute or chronic; E03.9 Hypothyroidism, unspecified; E66.9 Obesity, unspecified; N20.0 Calculus of kidney; Z79.890 Hormone replacement therapy; Z87.440 Personal history of urinary (tract) infections; Z87.442 Personal history of urinary calculi; Z87.891 Personal history of nicotine dependence; Z68.37 Body mass index [BMI] 37.0-37.9, adult
CPT/HCPCS: 36415; 74176; 80048; 80053; 81001; 83605; 85025; 87086; 96374; 96375; 99285

== ENCOUNTER → 2023-11-17 | Outpatient (CLI) | payer BC | END | disposition home or self-care (01) | LOC: LABWHC1 09:39 | PROVIDERS: ATTEND Internal Medicine Endocrinology, Diabetes & Metabolism | DX: E03.8 Other specified hypothyroidism (principal) | CPT/HCPCS: 36415; 84443 ==